=== PATIENT | female | born 1950 | race Caucasian/White ===

== ENCOUNTER 2017-03-21 06:32 | Emergency (ER) | payer MEDICARE, BC ==
[2017-03-21] MEDS ORDERED: NS 0.9% 1000 ML* 1,000 ML IV SCH (07:15)
[2017-03-21] MEDS ORDERED: NS 0.9% 1000 ML* 1,000 ML IV ONE (07:49)
[2017-03-21 08:38] LABS: ALT 5 U/L (7-52); AST 8 U/L (13-39); Albumin 2.7 g/dL (3.2-5.2); Alkaline Phosphatase 80 U/L (34-104); Anion Gap 5 mmol/L (2-11); BUN/Creatinine Ratio 18.3 (8-20); Blood Urea Nitrogen 11 mg/dL (6-24); C Reactive Protein 164.14 mg/L (< 5.00); CO2 Carbon Dioxide 30 mmol/L (22-32); Calcium 8.5 mg/dL (8.6-10.3); Chloride 99 mmol/L (101-111); Creatine Kinase 11 U/L (10-223); EGFR African American 128.6 (>60); Globulin 2.8 g/dL (2-4); Glucose 97 mg/dL (70-100); Lipase < 10 U/L (11.0-82.0); Potassium 3.4 mmol/L (3.5-5.0); Sodium 134 mmol/L (133-145); Total Protein 5.5 g/dL (6.4-8.9)
[2017-03-21 08:42] LABS: Hematocrit 21 % (35-47); Hemoglobin 6.8 g/dl (12.0-16.0); Mean Corpuscular HGB Conc 33 g/dl (31-36); Mean Corpuscular Hemoglobin 27 pg (27-31); Mean Corpuscular Volume 80 fL (80-97); Mean Platelet Volume 7 um3 (7.4-10.4); Red Blood Count 2.55 10^6/ul (4.0-5.4); Red Cell Distribution Width 19 % (10.5-15)
[2017-03-21 08:46] LABS: Digoxin 0.8 ng/ml (0.8-2.0)
[2017-03-21 08:49] LABS: Comments Flag Yes
[2017-03-21 08:50] LABS: White Blood Count 2.3 10^3/ul (3.5-10.8)
[2017-03-21] MEDS ORDERED: Iohexol 300* (CONTRAST) 10 ML SDV IV ONE (09:33)
--- NOTE | 2017-03-21 11:22 | RAD ---
CLINICAL HISTORY: Pain, vomiting COMPARISON: January 21, 2017 TECHNIQUE: Multiple contiguous axial CT scans were obtained of the abdomen and pelvis after the administration of intravenous contrast. Coronal and sagittal multiplanar reformations are submitted for review. Oral contrast was administered. Delayed images were obtained through the abdomen and pelvis. FINDINGS: LUNG BASES: There is a small right pleural effusion LIVER: There are multiple subcapsular loculated fluid collections. These have progressed from the previous examination. BILE DUCTS: There is no intrahepatic or extrahepatic biliary dilatation. GALLBLADDER: The gallbladder is not well visualized PANCREAS: The pancreas is normal, without mass or ductal dilatation. SPLEEN: Normal in size and appearance. UPPER GI TRACT: Evaluation of the gastrointestinal tract is limited by incomplete gastric distention. The upper GI tract is unremarkable. SMALL BOWEL AND MESENTERY: The small bowel is normal in contour, course, and caliber. There is no obstruction or dilatation. There is omental caking and thickening of the mesentery. COLON: A colostomy is noted. There is diverticulosis of the distal colon. There has been interval development of soft tissue nodularity extending from peritoneal soft tissue densities along the ostomy site. ADRENALS: Normal bilaterally. KIDNEYS: The kidneys are normal in shape, size, contour, and axis. There is no hydronephrosis or nephrolithiasis. BLADDER: The bladder is incompletely distended and is not well evaluated PELVIC ORGANS: The pelvic organs are not visualized. AORTA: The aorta is normal. IVC: Unremarkable LYMPH NODES: There is no lymphadenopathy by size criteria. ABDOMINAL WALL: A colostomy is noted. As noted above, there is extension of soft tissue density along the ostomy site. BONES AND SOFT TISSUES: There is a sclerotic focus within the L5 vertebral body. This is stable from the previous examination. Mild degenerative changes are noted. OTHER: There are extensive loculated fluid collections within the abdomen suggestive of loculated ascites. There is extensive thickening of the mesentery and omentum as described above. There is diffuse peritoneal soft tissue nodularity, with extension through the ostomy site IMPRESSION: THERE IS EXTENSIVE PERITONEAL METASTATIC DISEASE, WITH SIGNIFICANT PROGRESSION COMPARED TO JANUARY 21, 2017, WITH PROGRESSION OF OMENTAL CAKING AND MESENTERIC CARCINOMATOSIS, AND NODULAR PERITONEAL IMPLANTATION, WITH EXTENSION OF SOFT TISSUE DENSITY THROUGH THE OSTOMY SITE. THERE HAS BEEN PROGRESSION OF MULTILOCULATED ASCITES AND MULTIPLE SUBCAPSULAR HEPATIC FLUID COLLECTIONS
[2017-03-21 11:58] LABS: Urine Bilirubin Negative (Negative); Urine Glucose Negative (Negative); Urine Nitrite Negative (Negative)
--- NOTE | 2017-03-21 12:05 | ED ---
Erik Woodard Benjamin, scribed for Quique Ashley MD on 03/21/17 at 0928 . Abdominal Pain/Female - HPI Summary HPI Summary: 66yo female with recurring endometrial CA comes to ED c/o nausea and vomiting for the past 3 days. Pt had tumor removal surgery at [facility] on November, and has been on chemo Tx since, with tx on January and March 04. After the chemo on 03/04 , pt started having fluid buildup in her abdomen, which she had paracentesis for. Pt reports fluid still present, and pt feeling nauseous despite taking nausea meds. Pt reports vomiting up green fluid multiple times since last week. Pt spoke to Dr. Rangel, and Dr. Rangel sent her here, wanting CT scan. Pt has bloated stomach. PMHx includes recurring endometrial cancer, htn, afib, and heart murmur - History of Current Complaint Chief Complaint: EDAbdPain Stated Complaint: STOMACH PAIN Time Seen by Provider: 03/21/17 07:34 Hx Obtained From: Patient Onset/Duration: Gradual Onset, Still Present Timing: Constant Severity Initially: Mild Severity Currently: Mild Pain Intensity: 4 Pain Scale Used: 0-10 Numeric Location: Diffuse Radiates: No Aggravating Factor(s): Nothing Alleviating Factor(s): Nothing Associated Signs and Symptoms: Positive: Nausea, Vomiting Allergies/Adverse Reactions: Allergies Allergy/AdvReac Type Severity Reaction Status Date / Time Amoxicillin Allergy Unknown Verified 03/21/17 07:12 Reaction Details CI Pigment Blue 63 Allergy Unknown Verified 03/21/17 07:12 [From Pradaxa] Reaction Details Dabigatran [From Pradaxa] Allergy Unknown Verified 03/21/17 07:12 Reaction Details Rivaroxaban [From Xarelto] Allergy Unknown Verified 03/21/17 07:12 Reaction Details Yellow Dye [From Pradaxa] Allergy Unknown Verified 03/21/17 07:12 Reaction Details PMH/Surg Hx/FS Hx/Imm Hx Endocrine/Hematology History: Denies: Hx Diabetes Cardiovascular History: Reports: Hx Atrial Fibrillation Denies: Hx Hypertension History: Denies: Hx Renal Disease - Cancer History Cancer Type, Location and Year: endometrial CA - Surgical History Surgery Procedure, Year, and Place: [facility], LAPAROSCOPIC SX, MULTIPLE SX FOR RETROPERITONEAL TUMOR REMOVALS Infectious Disease History: No Infectious Disease History: Denies: Traveled Outside the [place] in Last 30 Days - Family History Known Family History: Positive: Cardiac Disease - Social History Occupation: Retired Lives: With Family Alcohol Use: None Substance Use Type: Reports: None Smoking Status (MU): Never Smoked Tobacco Review of Systems Constitutional: Negative Eyes: Negative ENT: Negative Cardiovascular: Negative Respiratory: Negative Positive: Abdominal Pain, Vomiting, Nausea Genitourinary: Negative Musculoskeletal: Negative Skin: Negative Neurological: Negative Psychological: Normal All Other Systems Reviewed And Are Negative: Yes Physical Exam Triage Information Reviewed: Yes Vital Signs On Initial Exam: Initial Vitals Temp Pulse Resp BP Pulse Ox 97.6 F 81 18 115/55 98 03/21/17 06:34 03/21/17 06:34 03/21/17 06:34 03/21/17 06:34 03/21/17 06:34 Vital Signs Reviewed: Yes Appearance: Positive: No Pain Distress, Ill-Appearing, Thin Skin: Positive: Warm, Skin Color Reflects Adequate Perfusion, Dry Head/Face: Positive: Normal Head/Face Inspection Eyes: Positive: Normal ENT: Positive: Normal ENT inspection, Other - dry oral mucosa Neck: Positive: Supple, Nontender Respiratory/Lung Sounds: Positive: Clear to Auscultation, Breath Sounds Present Cardiovascular: Positive: RRR Abdomen Description: Positive: Other: - diffusely firm and bloated abdomen; Colostomy bag grady. Bowel Sounds: Positive: Hypoactive Musculoskeletal: Positive: Strength/ROM Intact, Other - trace pedal edema Neurological: Positive: Sensory/Motor Intact, Alert, Oriented to Person Place, Time, CN Intact II-III Psychiatric: Positive: Affect/Mood Appropriate - [place] Coma Scale Coma Scale Total: 15 Diagnostics - Vital Signs Vital Signs Temp Pulse Resp BP Pulse Ox 03/21/17 08:00 73 102/50 98 03/21/17 07:30 74 108/48 99 03/21/17 07:10 74 97 03/21/17 07:07 101/57 03/21/17 06:46 97.6 F 81 18 115/55 98 03/21/17 06:34 97.6 F 81 18 115/55 98 - Laboratory Lab Results: Lab Results 03/21/17 03/21/17 03/21/17 Range/Units 08:00 08:00 08:00 INR (Anticoag Therapy) 1.03 (0.89-1.11) APTT 29.2 (26.0-36.3) seconds Sodium 134 (133-145) mmol/L Potassium 3.4 L (3.5-5.0) mmol/L Chloride 99 L (101-111) mmol/L Carbon Dioxide 30 (22-32) mmol/L Anion Gap 5 (2-11) mmol/L BUN 11 (6-24) mg/dL Creatinine 0.60 (0.51-0.95) mg/dL Est GFR ( Amer) 128.6 (>60) Est GFR (Non-Af Amer) 100.0 (>60) BUN/Creatinine Ratio 18.3 (8-20) Glucose 97 (70-100) mg/dL Lactic Acid 0.8 (0.5-2.0) mmol/L Calcium 8.5 L (8.6-10.3) mg/dL Total Bilirubin 0.40 (0.2-1.0) mg/dL AST 8 L (13-39) U/L ALT 5 L (7-52) U/L Alkaline Phosphatase 80 (34-104) U/L Total Creatine Kinase 11 (10-223) U/L Troponin I 0.00 (<0.04) ng/mL C-Reactive Protein 164.14 H (< 5.00) mg/L Total Protein 5.5 L (6.4-8.9) g/dL Albumin 2.7 L (3.2-5.2) g/dL Globulin 2.8 (2-4) g/dL Albumin/Globulin Ratio 1.0 (1-3) Lipase < 10 L (11.0-82.0) U/L Digoxin 0.8 (0.8-2.0) ng/ml Result Diagrams: 03/21/17 08:00 03/21/17 08:00 Lab Statement: Any lab studies that have been ordered have been reviewed, and results considered in the medical decision making process. - CT CT abd/Pelv W CT Interpretation: Positive (See Comments) - IMPRESSION: THERE IS EXTENSIVE PERITONEAL METASTATIC DISEASE, WITH SIGNIFICANT PROGRESSION COMPARED TO December, WITH PROGRESSION OF OMENTAL CAKING AND MESENTERIC CARCINOMATOSIS, AND NODULAR PERITONEAL IMPLANTATION, WITH EXTENSION OF SOFT TISSUE DENSITY THROUGH THE OSTOMY SITE. THERE HAS BEEN PROGRESSION OF MULTILOCULATED ASCITES AND MULTIPLE SUBCAPSULAR HEPATIC FLUID COLLECTIONS CT Interpretation Completed By: Radiologist Abdominal Pain Fem Course/Dx - Course Course Of Treatment: Discussed with Dr. Rangel at 1007; 1109. NO CRITICAL CARE TIME. DR RANGEL SAW PATIENT IN ED. INTERVENTIONAL RADIOLOGY WILL DRAIN ASCITES WITH US GUIDED PARACENTESIS. DISCHARGE HOME STABLE. - Diagnoses Provider Diagnoses: Ascites, Abdominal pain, Anemia Discharge - Discharge Plan Condition: Stable Disposition: HOME Patient Education Materials: Ascites (ED), Abdominal Pain (ED), Anemia (ED) Referrals: Andrea Rangel MD [Medical Doctor] - Butch CHILDRESS,Miguel Rodriges [Primary Care Provider] - Additional Instructions: FOLLOW UP WITH YOUR DOCTOR. RETURN TO THE EMERGENCY DEPARTMENT FOR ANY WORSENING OF YOUR CONDITION OR QUESTIONS OR CONCERNS. The documentation as recorded by the Erik luna Benjamin accurately reflects the service I personally performed and the decisions made by me, Quique Ashley MD.
[2017-03-21 12:30] VITALS: BP 114/49
[2017-03-21] MEDS ORDERED: fentaNYL* 50 MCG/ML 2 ML VIAL (100 MCG VIAL) ONE (12:44)
[2017-03-21] MEDS ORDERED: Ondansetron INJ* 2 MG/ML VIAL ONE (12:58)
--- NOTE | 2017-03-21 14:25 | RAD ---
CPT II Codes: 6100F ULTRASOUND-GUIDED PARACENTESIS. INDICATION: Malignant, loculated ascites COMPARISON: CT abdomen and pelvis March 21, 2017 IMAGING FINDINGS AND PROCEDURE NOTE: The benefits of the and risks of procedure explained to the patient. The patient consented of the exam. The patient was brought to the ultrasound suite and multiple images of the peritoneal fluid were obtained. Corresponding to the same day CT imaging, there are multiple loculated ascites collections in the peritoneal cavity. The largest is in the left upper quadrant. Immediately inferior to this largest left upper quadrant collection is a small to moderate collection below. There appears to be a thin septation dividing this upper and lower fluid collections. A time out was performed before beginning the procedure. The patient was prepped and draped in the usual sterile fashion. The patient?s abdominal wall at the site was anesthetized with 1% lidocaine. A small skin deneen was made to admit the paracentesis needle and catheter overlying the slightly more inferior peritoneal ascites collection. Under sonographic control, the needle and catheter were advanced into the lower collection, the catheter was then directed in the cephalad direction crossing the septation with the tip terminating in the larger left upper quadrant peritoneal ascites cavity. Cine sonographic imaging was recorded. The catheter was then slowly retracted incrementally with the goal of draining both loculated fluid collections above and below the septation. Approximately 1060 mL of dark maroon serosanguineous fluid was removed. The patient tolerated procedure well without incident. IMPRESSION: UNCOMPLICATED ULTRASOUND-GUIDED PARACENTESIS DESCRIBED ABOVE.
== END 2017-03-21 15:20 | disposition home or self-care (01) ==
LOC: ED 06:32
DX: R18.8 Other ascites (principal); R10.9 Unspecified abdominal pain; D64.9 Anemia, unspecified; R11.2 Nausea with vomiting, unspecified; C55 Malignant neoplasm of uterus, part unspecified
CPT/HCPCS: 36415; 36430; 49083; 74177; 80053; 80162; 81003; 82550; 83605; 83690; 84484; 85025; 85610; 85730; 86140; 86803; 96374; 99283; 99284; J1642; J2405; J3010; P9040; Q9967

== ENCOUNTER 2017-03-29 08:22 | Emergency (ER) | payer MEDICARE, BC ==
[2017-03-29] MEDS ORDERED: Ketorolac INJ* 30 MG/ML 1 ML VIAL IV ONE (08:48)
[2017-03-29] MEDS ORDERED: Ketorolac INJ* 30 MG/ML 1 ML VIAL ONE (08:50)
[2017-03-29 09:14] LABS: Hematocrit 26 % (35-47); Hemoglobin 8.4 g/dl (12.0-16.0); Mean Corpuscular HGB Conc 33 g/dl (31-36); Mean Corpuscular Hemoglobin 27 pg (27-31); Mean Corpuscular Volume 81 fL (80-97); Mean Platelet Volume 6 um3 (7.4-10.4); Red Blood Count 3.14 10^6/ul (4.0-5.4); Red Cell Distribution Width 18 % (10.5-15); White Blood Count 3.9 10^3/ul (3.5-10.8)
[2017-03-29 09:29] LABS: Albumin 2.9 g/dL (3.2-5.2); BUN/Creatinine Ratio 17.5 (8-20); Calcium 8.4 mg/dL (8.6-10.3); EGFR African American 121.6 (>60); EGFR Non-African American 94.5 (>60); Globulin 3.1 g/dL (2-4); Potassium 3.5 mmol/L (3.5-5.0); Total Bilirubin 0.4 mg/dL (0.2-1.0)
[2017-03-29] MEDS ORDERED: Ondansetron INJ* 2 MG/ML VIAL IV ONE (10:06)
[2017-03-29] MEDS ORDERED: HYDROmorphone* 1 MG/ML 1 ML SYR IV ONE (10:06)
[2017-03-29] MEDS ORDERED: NS 0.9% 1000 ML* 1,000 ML IV SCH (10:15)
[2017-03-29] MEDS ORDERED: fentaNYL* 50 MCG/ML 2 ML VIAL (100 MCG VIAL) ONE (12:21)
--- NOTE | 2017-03-29 14:05 | RAD ---
Indication: Abdominal distention. Real-time sonography of the abdomen was performed for evaluation of fluid. There is a loculated collection in the left lower quadrant and left upper quadrant. Using usual aseptic technique and using lidocaine as a local anesthetic a 5-Thai catheter was placed within the left lower quadrant collection. Approximately 400 mL of the fluid was aspirated. IMPRESSION: Successful aspiration of 400 mL of bloody fluid from the left lower quadrant.
[2017-03-29 15:35] VITALS: BP 117/51
--- NOTE | 2017-03-29 17:49 | ED ---
Argentina Woodard Rebecca, scribed for Quique Ashley MD on 03/29/17 at 0840 . Abdominal Pain/Female - HPI Summary HPI Summary: Pt is a 66 y/o F who presents to ED c/o acute on chronic abd pain. Pain worsened yesterday afternoon. Pain is in the RLQ and RUQ with radiation to the R flank and is currently moderate, ranked 6/10. Sx aggravated and alleviated by nothing. Additionally c/o abdominal fluid retention and nausea. Is currently undergoing Tx for endometrial CA for which she started a new regime on Tuesday ( 4 days ago) and has undergone one treatment with the new plan. Undergoes paracentesis to treat ascites every 2-3 days to drain abdominal fluid, the last drainage was [address] Ramirez. - History of Current Complaint Chief Complaint: EDAbdPain Stated Complaint: ABD FLUID Time Seen by Provider: 03/29/17 08:29 Hx Obtained From: Patient Onset/Duration: Still Present Severity Currently: Moderate Pain Intensity: 6 Pain Scale Used: 0-10 Numeric Location: Discrete At: RUQ, Discrete At: RLQ Radiates: Yes Radiates to: Flank - Right Aggravating Factor(s): Nothing Alleviating Factor(s): Nothing Associated Signs and Symptoms: Positive: Nausea, Other: - Abdominal fluid retention Allergies/Adverse Reactions: Allergies Allergy/AdvReac Type Severity Reaction Status Date / Time Amoxicillin Allergy Unknown Verified 03/25/17 09:48 Reaction Details CI Pigment Blue 63 Allergy Unknown Verified 03/25/17 09:48 [From Pradaxa] Reaction Details Dabigatran [From Pradaxa] Allergy Unknown Verified 03/25/17 09:48 Reaction Details Rivaroxaban [From Xarelto] Allergy Unknown Verified 03/25/17 09:48 Reaction Details Yellow Dye [From Pradaxa] Allergy Unknown Verified 03/25/17 09:48 Reaction Details PMH/Surg Hx/FS Hx/Imm Hx Endocrine/Hematology History: Denies: Hx Diabetes Cardiovascular History: Reports: Hx Atrial Fibrillation Denies: Hx Hypertension History: Denies: Hx Renal Disease - Cancer History Cancer Type, Location and Year: endometrial CA - Surgical History Surgery Procedure, Year, and Place: [facility], LAPAROSCOPIC SX, MULTIPLE SX FOR RETROPERITONEAL TUMOR REMOVALS Infectious Disease History: No Infectious Disease History: Denies: Traveled Outside the [place] in Last 30 Days - Family History Known Family History: Positive: Cardiac Disease - Social History Alcohol Use: None Substance Use Type: Reports: None Smoking Status (MU): Never Smoked Tobacco Review of Systems Positive: Other - Abdominal fluid retention Positive: Abdominal Pain, Nausea All Other Systems Reviewed And Are Negative: Yes Physical Exam - Summary Physical Exam Summary: General: thing, mild to moderate pain distress Skin: warm, skin color reflects adequate perfusion, dry Head: normal Eyes: EOMI, HOMERO ENT: normal Neck: supple, nontender Respiratory: CTA, breath sounds present Cardiovascular: RRR Abdomen: distended, firm, diffusely tender Bowel: hypoactive Musculoskeletal: normal, strength/ROM intact Neuro: normal, sensory/motor intact, A&O x3 Psych: affect/mood appropriate Triage Information Reviewed: Yes Vital Signs On Initial Exam: Initial Vitals Temp Pulse Resp BP Pulse Ox 98.5 F 89 16 111/60 100 03/29/17 08:26 03/29/17 08:26 03/29/17 08:26 03/29/17 08:26 03/29/17 08:26 Vital Signs Reviewed: Yes Diagnostics - Vital Signs Vital Signs Temp Pulse Resp BP Pulse Ox 03/29/17 08:26 98.5 F 89 16 111/60 100 - Laboratory Lab Results: Lab Results 03/29/17 03/29/17 03/29/17 Range/Units 09:05 09:05 09:05 WBC 3.9 (3.5-10.8) 10^3/ul RBC 3.14 L (4.0-5.4) 10^6/ul Hgb 8.4 L (12.0-16.0) g/dl Hct 26 L (35-47) % MCV 81 (80-97) fL MCH 27 (27-31) pg MCHC 33 (31-36) g/dl RDW 18 H (10.5-15) % Plt Count 633 H D (150-450) 10^3/ul MPV 6 L (7.4-10.4) um3 Neut % (Auto) 78.9 (38-83) % Lymph % (Auto) 8.5 L (25-47) % [place] % (Auto) 11.3 H (1-9) % Eos % (Auto) 0.7 (0-6) % Baso % (Auto) 0.6 (0-2) % Absolute Neuts (auto) 3.1 (1.5-7.7) 10^3/ul Absolute Lymphs (auto) 0.3 L (1.0-4.8) 10^3/ul Absolute Monos (auto) 0.4 (0-0.8) 10^3/ul Absolute Eos (auto) 0 (0-0.6) 10^3/ul Absolute Basos (auto) 0 (0-0.2) 10^3/ul Absolute Nucleated RBC 0 10^3/ul Nucleated RBC % 0 INR (Anticoag Therapy) 0.97 (0.89-1.11) APTT 309.8 H* (26.0-36.3) seconds Sodium 131 L (133-145) mmol/L Potassium 3.5 (3.5-5.0) mmol/L Chloride 96 L (101-111) mmol/L Carbon Dioxide 30 (22-32) mmol/L Anion Gap 5 (2-11) mmol/L BUN 11 (6-24) mg/dL Creatinine 0.63 (0.51-0.95) mg/dL Est GFR ( Amer) 121.6 (>60) Est GFR (Non-Af Amer) 94.5 (>60) BUN/Creatinine Ratio 17.5 (8-20) Glucose 96 (70-100) mg/dL Calcium 8.4 L (8.6-10.3) mg/dL Total Bilirubin 0.40 (0.2-1.0) mg/dL AST 12 L (13-39) U/L ALT 6 L (7-52) U/L Alkaline Phosphatase 118 H (34-104) U/L Total Protein 6.0 L (6.4-8.9) g/dL Albumin 2.9 L (3.2-5.2) g/dL Globulin 3.1 (2-4) g/dL Albumin/Globulin Ratio 0.9 L (1-3) 03/29/17 Range/Units 10:29 WBC (3.5-10.8) 10^3/ul RBC (4.0-5.4) 10^6/ul Hgb (12.0-16.0) g/dl Hct (35-47) % MCV (80-97) fL MCH (27-31) pg MCHC (31-36) g/dl RDW (10.5-15) % Plt Count (150-450) 10^3/ul MPV (7.4-10.4) um3 Neut % (Auto) (38-83) % Lymph % (Auto) (25-47) % [place] % (Auto) (1-9) % Eos % (Auto) (0-6) % Baso % (Auto) (0-2) % Absolute Neuts (auto) (1.5-7.7) 10^3/ul Absolute Lymphs (auto) (1.0-4.8) 10^3/ul Absolute Monos (auto) (0-0.8) 10^3/ul Absolute Eos (auto) (0-0.6) 10^3/ul Absolute Basos (auto) (0-0.2) 10^3/ul Absolute Nucleated RBC 10^3/ul Nucleated RBC % INR (Anticoag Therapy) 0.94 (0.89-1.11) APTT 32.2 (26.0-36.3) seconds Sodium (133-145) mmol/L Potassium (3.5-5.0) mmol/L Chloride (101-111) mmol/L Carbon Dioxide (22-32) mmol/L Anion Gap (2-11) mmol/L BUN (6-24) mg/dL Creatinine (0.51-0.95) mg/dL Est GFR ( Amer) (>60) Est GFR (Non-Af Amer) (>60) BUN/Creatinine Ratio (8-20) Glucose (70-100) mg/dL Calcium (8.6-10.3) mg/dL Total Bilirubin (0.2-1.0) mg/dL AST (13-39) U/L ALT (7-52) U/L Alkaline Phosphatase (34-104) U/L Total Protein (6.4-8.9) g/dL Albumin (3.2-5.2) g/dL Globulin (2-4) g/dL Albumin/Globulin Ratio (1-3) Result Diagrams: 03/29/17 09:05 03/29/17 09:05 Lab Statement: Any lab studies that have been ordered have been reviewed, and results considered in the medical decision making process. - Ultrasound No standard instances Ultrasound Interpretation: Positive (See Comments) - Paracentesis US: Successful aspiration of 400 mL of bloody fluid from the left lower quadrant. Ultrasound Interpretation Completed By: Radiologist Re-Evaluation - Re-Evaluation First Eval Re-Evaluation Time: 09:58 Change: Unchanged Comment: Pt reports she continues to be in a lot of pain. Discussed consult with Dr. Rangel. Abdominal Pain Fem Course/Dx - Course Course Of Treatment: NO CRITICAL CARE TIME. DISCUSSED WITH DR RANGEL. INTERVENTIONAL RADIOLOGY PERFORMED US GUIDED PARACENTESIS, REMOVING 400CC WITH DECREASED ABD PAIN. DISCHARGE HOME STABLE. - Diagnoses Provider Diagnoses: Ascites, Abdominal pain - Provider Notifications Discussed Care Of Patient With: Andrea Rangel Time Discussed With Above Provider: 08:41 Instructed by Provider To: Other - Because her ascites is loculated, when it gets drianed, it must be drianed with US guidance so it s dependent upon whether radiology can do it. He is also happy to admit her for pain control if necessary. Discussed care of pt with Dr. Rangel again at 0935 who advised that dependent upon the pt's level of pain, the condition and need for US guided pericentesis is emergent. If the pt cannot handle pain until tomorrow, he advised that the procedure should be completed today. Discharge - Discharge Plan Condition: Stable Disposition: HOME Patient Education Materials: Ascites (ED), Abdominal Pain (ED) Referrals: Butch CHILDRESS,Miguel Rodriges [Primary Care Provider] - Additional Instructions: FOLLOW UP WITH YOUR DOCTOR. RETURN TO THE EMERGENCY DEPARTMENT FOR ANY WORSENING OF YOUR CONDITION OR QUESTIONS OR CONCERNS. The documentation as recorded by the Argentina luna Rebecca accurately reflects the service I personally performed and the decisions made by me, Quique Ashley MD.
== END 2017-03-29 15:50 | disposition home or self-care (01) ==
LOC: ED 08:22
DX: R18.8 Other ascites (principal); R10.84 Generalized abdominal pain; R11.0 Nausea
CPT/HCPCS: 36415; 49083; 80053; 85025; 85610; 85730; 96374; 96375; 99283; J1170; J1642; J1885; J2405; J3010

== ENCOUNTER 2017-04-11 14:40 | Inpatient (IN) | payer MEDICARE, BC ==
[2017-04-11] MEDS ORDERED: Ondansetron TAB* 4 MG PO PRN (15:03)
[2017-04-11 17:24] LABS: Hematocrit 22 % (35-47); Mean Corpuscular HGB Conc 32 g/dl (31-36); Mean Corpuscular Hemoglobin 25 pg (27-31); Mean Corpuscular Volume 78 fL (80-97); Mean Platelet Volume 7 um3 (7.4-10.4); Red Blood Count 2.79 10^6/ul (4.0-5.4); Red Cell Distribution Width 20 % (10.5-15); White Blood Count 4.9 10^3/ul (3.5-10.8)
[2017-04-11] MEDS: Scopolamine 1.5 mg* PATCH TRANSDERM SCH (17:33)
[2017-04-11] MEDS: Ciprofloxacin 400MG IVPREMIX(* 400 MG/200 ML BAG IVPB SCH (17:33)
[2017-04-11] MEDS: Digoxin TAB* 0.125 MG PO SCH (18:05)
[2017-04-11] MEDS: Acetaminophen TAB* 325 MG PO PRN (19:39)
--- NOTE | 2017-04-11 20:57 | RAD ---
CLINICAL HISTORY: Fever, abdominal pain COMPARISON: March 21, 2017 TECHNIQUE: Multiple contiguous axial CT scans were obtained of the abdomen and pelvis, without intravenous contrast enhancement. Coronal and sagittal multiplanar reformations are submitted for review. Oral contrast was not administered. FINDINGS: The study is limited by the lack of intravenous contrast. This limits evaluation of the solid organs and vasculature. LUNG BASES: There is a small right pleural effusion. LIVER: There are multiple subcapsular hepatic parenchymal lesions. BILE DUCTS: There is no intrahepatic or extrahepatic biliary dilatation. GALLBLADDER: Gallstones are noted. The gallbladder is collapsed. PANCREAS: The pancreas is normal, without mass or ductal dilatation. SPLEEN: Normal in size and appearance. UPPER GI TRACT: Evaluation of the gastrointestinal tract is limited by incomplete gastric distention. The upper GI tract is unremarkable. SMALL BOWEL AND MESENTERY: The small bowel is normal in contour, course, and caliber. There is no obstruction or dilatation. COLON: There are multiple diverticula of the sigmoid colon. There is no pericolonic inflammatory change. ADRENALS: Normal bilaterally. KIDNEYS: The kidneys are normal in shape, size, contour, and axis. There is no hydronephrosis or nephrolithiasis. BLADDER: The bladder is smooth in contour. PELVIC ORGANS: The pelvic organs are not visualized. AORTA: The aorta is normal. IVC: Unremarkable LYMPH NODES: There is no lymphadenopathy by size criteria. ABDOMINAL WALL: A colostomy is noted. There is soft tissue density at the level of the stoma BONES AND SOFT TISSUES: Degenerative changes are noted. There is stable sclerotic focus of L5 OTHER: There is large amount of loculated ascites with multiple peritoneal soft tissue masses.] Comparison is limited due to the lack of intravenous contrast on Doppler, the appearance is similar to the March 21, 2017 examination. IMPRESSION: 1. LIMITED STUDY. 2. AGAIN NOTED IS EXTENSIVE PERITONEAL METASTATIC DISEASE WITH MULTILOCULATED ASCITES AND SUBCAPSULAR HEPATIC LESIONS. WITHIN THE LIMITATIONS OF THE STUDY, THE APPEARANCE IS SIMILAR TO THE MARCH 21, 2017 EXAMINATION
[2017-04-11] MEDS: Docusate CAP* 100 MG PO SCH (21:14)
[2017-04-11] MEDS: metroNIDAZOLE IV 500 MG/100ML* 500 MG/100 ML BAG IVPB SCH (21:31)
[2017-04-12] MEDS: Ondansetron INJ* 2 MG/ML VIAL IV PRN ×4 (00:52→20:57)
[2017-04-12] MEDS ORDERED: Acetaminophen TAB* 325 MG PO ONE (01:15)
[2017-04-12] MEDS: NS 0.9% 1000 ML* 1,000 ML IV SCH ×2 (03:02→20:57)
[2017-04-12] MEDS: Ciprofloxacin 400MG IVPREMIX(* 400 MG/200 ML BAG IVPB SCH ×2 (04:22→15:30)
[2017-04-12 06:14] LABS: Albumin 2.4 g/dL (3.2-5.2); BUN/Creatinine Ratio 24.7 (8-20); Calcium 8.1 mg/dL (8.6-10.3); EGFR African American 81.6 (>60); EGFR Non-African American 63.5 (>60); Potassium 3.6 mmol/L (3.5-5.0); Total Bilirubin 0.4 mg/dL (0.2-1.0); Total Protein 5.4 g/dL (6.4-8.9)
[2017-04-12] MEDS: Aspirin EC Low Dose* 81 MG TAB.EC PO SCH (08:24)
[2017-04-12] MEDS: metroNIDAZOLE IV 500 MG/100ML* 500 MG/100 ML BAG IVPB SCH ×2 (08:24→20:56)
[2017-04-12] MEDS: Docusate CAP* 100 MG PO SCH ×2 (08:24→20:57)
[2017-04-12] MEDS ORDERED: PROCHLORPERAZINE INJ 5 MG/ML 2 ML VIAL IV ONE (09:00)
[2017-04-12] MEDS: Metoprolol Succinate XL TAB* 25 MG PO SCH (09:48)
[2017-04-12 11:36] LABS: Hematocrit 22 % (35-47); Hemoglobin 7.1 g/dl (12.0-16.0); Mean Corpuscular HGB Conc 32 g/dl (31-36); Mean Corpuscular Hemoglobin 25 pg (27-31); Mean Corpuscular Volume 78 fL (80-97); Mean Platelet Volume 6 um3 (7.4-10.4); Red Blood Count 2.83 10^6/ul (4.0-5.4); Red Cell Distribution Width 20 % (10.5-15); White Blood Count 4.7 10^3/ul (3.5-10.8)
[2017-04-12] MEDS: Acetaminophen TAB* 325 MG PO PRN ×2 (12:48→18:13)
[2017-04-12] MEDS ORDERED: Digoxin TAB* 0.25 MG ONE (12:53)
[2017-04-12 13:06] LABS: Body Fluid Appearance Bloody
[2017-04-12] MEDS: Digoxin TAB* 0.25 MG PO SCH (14:07)
[2017-04-12 14:17] LABS: Body Fluid WBC 62073 /mcL
--- NOTE | 2017-04-12 14:23 | RAD ---
Indication: Sepsis. Informed consent was obtained the patient. Loculated fluid collection in the left lower quadrant was localized. Using usual aseptic technique and lidocaine as a local anesthetic a 5-Telugu catheter was placed within the fluid. 60 mL of bloody fluid was aspirated. A vacuum bottle was attached and 450 mL of dark old bloody fluid was aspirated. The specimen was sent for cultures and sensitivities. IMPRESSION: Successful ultrasound-guided localization and aspiration of approximately 510 mL of dark bloody appearing fluid.
[2017-04-12] MEDS: PROCHLORPERAZINE INJ 5 MG/ML 2 ML VIAL IV PRN (15:26)
[2017-04-12 15:42] LABS: Body Fluid Total Cells Counted 100
[2017-04-13] MEDS: PROCHLORPERAZINE INJ 5 MG/ML 2 ML VIAL IV PRN ×2 (01:10→18:31)
[2017-04-13] MEDS: Ondansetron INJ* 2 MG/ML VIAL IV PRN ×3 (02:24→21:12)
[2017-04-13] MEDS: Ciprofloxacin 400MG IVPREMIX(* 400 MG/200 ML BAG IVPB SCH (03:35)
[2017-04-13 05:47] LABS: BUN/Creatinine Ratio 25.4 (8-20); EGFR African American 121.6 (>60); EGFR Non-African American 94.5 (>60); Potassium 3.8 mmol/L (3.5-5.0)
[2017-04-13 08:34] LABS: Hematocrit 29 % (35-47); Hemoglobin 9.4 g/dl (12.0-16.0); Mean Corpuscular HGB Conc 33 g/dl (31-36); Mean Corpuscular Hemoglobin 26 pg (27-31); Mean Corpuscular Volume 80 fL (80-97); Mean Platelet Volume 6 um3 (7.4-10.4); Red Blood Count 3.62 10^6/ul (4.0-5.4); Red Cell Distribution Width 19 % (10.5-15); White Blood Count 6.3 10^3/ul (3.5-10.8)
[2017-04-13] MEDS: Docusate CAP* 100 MG PO SCH ×2 (09:20→21:12)
[2017-04-13] MEDS: metroNIDAZOLE IV 500 MG/100ML* 500 MG/100 ML BAG IVPB SCH ×2 (09:20→21:12)
[2017-04-13] MEDS: Metoprolol Succinate XL TAB* 25 MG PO SCH (09:20)
[2017-04-13] MEDS: Aspirin EC Low Dose* 81 MG TAB.EC PO SCH (09:20)
[2017-04-13] MEDS: Pantoprazole IV* 40 MG IV SCH (11:33)
[2017-04-13] MEDS: cefTRIAXone VIAL(*) 1,000 MG in NS 0.9% 50 ML* 50 ML IVPB SCH (11:33)
[2017-04-13] MEDS: Enoxaparin(*) 40 MG/0.4 ML SYR SUBCUT SCH (11:34)
[2017-04-13] MEDS: Morphine INJ* 2 MG/ML 1 ML SYRINGE IV PRN ×2 (11:49→18:31)
[2017-04-13] MEDS ORDERED: Acetaminophen SUPP* 650 MG SUPP PR PRN (12:53)
[2017-04-13] MEDS: NS 0.9% 1000 ML* 1,000 ML IV SCH (14:04)
--- NOTE | 2017-04-13 14:39 | CONS ---
CONSULTATION REPORT: DATE OF CONSULT: 04/13/17 REQUESTING PROVIDER: DELILAH Benjamin CONSULTING SERVICE: Infectious Disease. REASON FOR CONSULT: Peritonitis. IMPRESSION: 1. Endometrial cancer with peritoneal carcinomatosis and loculated ascites, recent left-sided aspiration of one pocket showed 62,000 white cells most polys. The Gram stain shows gram-positive cocci in chains, gram-negative rods, gram-positive rods, most likely enteric yulia. There was no gross evidence for abscess on the CT scan, but I am concerned that given that these are starting of as a loculated collection, they may act more like an abscess than the typical spontaneous bacterial peritonitis. 2. Right of midline abdominal wall cellulitis could be due to a recent frequent paracentesis. It is adjacent to the ostomy. 3. Endometrial cancer, complicated by metastasis to the liver and peritoneum. 4. Anemia. 5. Mild transaminitis. 6. Question of ileus. RECOMMENDATIONS: 1. We will add gram-positive coverage with ceftriaxone and continue Flagyl, stop Cipro. 2. She has the AMOXICILLIN ALLERGY that caused rash and there is very low cross reactivity to ceftriaxone and we will monitor closely for adverse events however. 3. If her abdominal distention and vomiting progresses, would consider surgical consultation, although she did not have an obstruction on the CT yesterday. She feels she is getting worse and one may have developed in the interim. Alternatively, it may just be an ileus in response to associated infection. HISTORY OF PRESENT ILLNESS: This is a 66-year-old woman with metastatic endometrial cancer, admitted with abdominal distention and pain. She has been receiving chemotherapy over the last couple of months, had occasional vomiting and then 3 to 4 days ago developed worsening abdominal distention, pain, and vomiting 2 to 3 times a day. In the last day and half, she has a decreased output from her ostomy some gas, but no stool. Today, she has had couple episodes of bilious emesis without blood. She had a paracentesis yesterday, 500 mL of bloody fluid was removed. CT of the abdomen and pelvis done on the shows peritoneal metastatic disease, multiloculated ascites and subcapsular hepatic lesions similar to March 21. She has had ongoing left-sided abdominal pain that has become more diffuse. It is little bit worse when she moves around and rolls on the bed. She is not taking in much by mouth other than pills. She has had no fevers while she has been here. PAST MEDICAL HISTORY: 1. Endometrial cancer, diagnosed in 2013 treated with hysterectomy and oophorectomy and omentectomy in 2014, then treated with brachytherapy; another laparoscopic abdominal surgery January 2016 followed by chemotherapy, Gemzar and cisplatin; tumor debulking May 2016; and ostomy. Subsequent radiation and Megace treatment. Recurrence in October 2016 with metastasis to the liver and peritoneum and in December 2016 had exploratory laparotomy, lysis of adhesions, resection of lymph nodes, omentectomy and partial hepatic resection, currently on Torisel. 2. Atrial fibrillation. 3. Status post right chest port. ALLERGIES: AMOXICILLIN caused itchy rash, XARELTO caused petechiae, and PRADAXA caused bleeding. MEDICATIONS: Tylenol, aspirin, digoxin, docusate, enoxaparin, metoprolol, pantoprazole, Cipro 500 mg IV every 12 hours, Flagyl 500 mg twice daily, scopolamine patch. SOCIAL HISTORY: She lives in [place] with her . No travel. No sick contacts. FAMILY HISTORY: Mother at 79 with pancreatic cancer, also had breast cancer. Father of ALS at age 66. REVIEW OF SYSTEMS: All negative to full review of systems except as noted above. PHYSICAL EXAM: Vital Signs: Temperature is 37, heart rate 100, respiratory rate 16, blood pressure 123/53, O2 sat 97% on room air. General: She is awake, not in distress. She is cachectic. HEENT: There is no conjunctival hemorrhage. Oropharynx without lesions. Neck is supple without nuchal rigidity. Lymph Nodes: There is no cervical, inguinal, axillary, or epitrochlear lymphadenopathy. Heart is regular and tachycardic without murmurs. Lungs: Decreased breath sounds at the bases bilaterally without wheezes or rales. Abdomen is distended, firm. There are decreased bowel sounds with left-sided ostomy without air or stool adjacent to that there is a little bit of stool when looking under the seal. Right of midline and of the ostomy, there is diffuse mild erythema, warmth, and tenderness without crepitus or fluctuance. Musculoskeletal: There is no joint synovitis. LABORATORY DATA: Creatinine 0.6. White blood cell count 6, hemoglobin 9, platelets 337. Please see impressions and recommendations outlined above, which I have discussed with DELILAH Benjamin. Thank you for asking me to see Ms. Wolff in consultation. [id number]/[facility] #: [id number] ROSHAN
[2017-04-13] MEDS: Digoxin TAB* 0.125 MG PO SCH (17:11)
[2017-04-13] MEDS: Acetaminophen ADULT LIQ* 650 MG/20.3 ML UDC PO PRN (21:12)
[2017-04-14] MEDS: PROCHLORPERAZINE INJ 5 MG/ML 2 ML VIAL IV PRN (05:49)
[2017-04-14 06:30] LABS: BUN/Creatinine Ratio 23.6 (8-20); EGFR African American 142.2 (>60); EGFR Non-African American 110.6 (>60); Potassium 3.7 mmol/L (3.5-5.0)
--- NOTE | 2017-04-14 07:33 | CONSULT ---
Consult Consult: Gunjan Rangel MD oncology requested evaluation for unusual fluid leak from the abdomen. Upon arrival, Mrs Wolff was comfortable. Her umbilicus was covered with several 4x4 gauze pads saturated with serosanguinous fluid. Light pressure on the abdomen creates a 1mm diameter jet 3-5cm high consistent with ascitic leak. The source is a blood blister overlying the mckenna-umbilical old laparotomy scar. Gunjan Rangel MD apprised, will place a colostomy bag over the site to collect. Consider surgical consult in AM.
[2017-04-14] MEDS: Metoprolol Succinate XL TAB* 25 MG PO SCH (09:03)
[2017-04-14] MEDS: metroNIDAZOLE IV 500 MG/100ML* 500 MG/100 ML BAG IVPB SCH ×2 (09:03→20:59)
[2017-04-14] MEDS: Docusate CAP* 100 MG PO SCH ×2 (09:03→20:59)
[2017-04-14] MEDS: Aspirin EC Low Dose* 81 MG TAB.EC PO SCH (09:03)
--- NOTE | 2017-04-14 09:09 | RAD ---
INDICATION: Paralytic ileus. COMPARISON: Comparison is made with a prior CT of the abdomen and pelvis from April 11, 2017. TECHNIQUE: Supine and decubitus views of the abdomen were obtained. FINDINGS: The small bowel and colon appear nondistended. No free intraperitoneal air is seen. There is an ostomy in the left lower quadrant. There is a small right pleural effusion which is unchanged from the prior CT study. IMPRESSION: 1. NO EVIDENCE FOR OBSTRUCTION OR ILEUS. 2. SMALL RIGHT PLEURAL EFFUSION.
[2017-04-14] MEDS ORDERED: Bisacodyl SUPP* 10 MG SUPP PR PRN (10:00)
[2017-04-14 10:06] LABS: Hematocrit 29 % (35-47); Hemoglobin 9.1 g/dl (12.0-16.0); Mean Corpuscular HGB Conc 32 g/dl (31-36); Mean Corpuscular Hemoglobin 26 pg (27-31); Mean Corpuscular Volume 81 fL (80-97); Mean Platelet Volume 6 um3 (7.4-10.4); Red Blood Count 3.57 10^6/ul (4.0-5.4); Red Cell Distribution Width 19 % (10.5-15); White Blood Count 4.5 10^3/ul (3.5-10.8)
--- NOTE | 2017-04-14 10:46 | PN ---
Progress Note - Progress Note Date of Service: 04/14/17 SOAP: Subjective: CC: abd pain HPI: 66 year old woman with metastatic endometrial cancer admitted with abd pain , has ascites and intermittant paracentesis. Now with cellulitis arising from midline abd incision and overnight eruption of serosanguinous fluid from nodule on healed incision. Ongoing drainage into ostomy bag. Fever overnight. Minimal ostomy output. Objective: [] Vital Signs Temp 36.9 C 04/14/17 07:28 Pulse 87 04/14/17 07:28 Resp 20 04/14/17 07:58 BP 123/52 04/14/17 07:28 Pulse Ox 97 04/14/17 07:28 Intake & Output 04/13/17 04/14/17 04/14/17 18:59 06:59 18:59 Intake Total 240 1745 Output Total 0 Balance 240 1745 Intake: IV Fluids 1580 NS (0.9%) 1580 IVPB 165 NS (0.9%) 165 Oral 240 0 Output: Urine 0 Other: Estimated Void Medium Small # Bowel Movements 0 # Voids 2 1 Gen:awake, no distress HEENT:PERRL, MMM Neck: supple Heart:RRR no murmur Lungs:CTA BL Abd:decr BS, distended, diffusely tender; midline healed incision w ostomy bag fluid present; LLQ ostomy bag deflated; R abd mild edema and warmth Skin: no rash Laboratory Results - last 24 hr 04/12/17 04/12/17 04/14/17 11:25 12:21 05:42 WBC RBC Hgb Hct MCV MCH MCHC RDW Plt Count MPV Neut % (Auto) Lymph % (Auto) Izard % (Auto) Eos % (Auto) Baso % (Auto) Absolute Neuts (auto) Absolute Lymphs (auto) Absolute Monos (auto) Absolute Eos (auto) Absolute Basos (auto) Absolute Nucleated RBC Nucleated RBC % Sodium 128 L Potassium 3.7 Chloride 97 L Carbon Dioxide 25 Anion Gap 6 BUN 13 Creatinine 0.55 Est GFR ( Amer) 142.2 Est GFR (Non-Af Amer) 110.6 BUN/Creatinine Ratio 23.6 H Glucose 82 Calcium 8.0 L Fluid Cell Count Rvw By Antibody Screen Positive Antibody Identification Anti-Fya Direct Antiglob Test Negative Crossmatch See Detail 04/14/17 10:00 WBC 4.5 RBC 3.57 L Hgb 9.1 L Hct 29 L MCV 81 MCH 26 L MCHC 32 RDW 19 H Plt Count 294 MPV 6 L Neut % (Auto) 88.5 H Lymph % (Auto) 2.6 L Izard % (Auto) 8.7 Eos % (Auto) 0.1 Baso % (Auto) 0.1 Absolute Neuts (auto) 4.0 Absolute Lymphs (auto) 0.1 L Absolute Monos (auto) 0.4 Absolute Eos (auto) 0 Absolute Basos (auto) 0 Absolute Nucleated RBC 0 Nucleated RBC % 0 Sodium Potassium Chloride Carbon Dioxide Anion Gap BUN Creatinine Est GFR ( Amer) Est GFR (Non-Af Amer) BUN/Creatinine Ratio Glucose Calcium Fluid Cell Count Rvw By Antibody Screen Antibody Identification Direct Antiglob Test Crossmatch Microbiology 04/12/17 12:21 Gram Stain - Final Peritoneal Fluid Body Fluid Culture - Preliminary Klebsiella Oxytoca Assessment: 1. fever due to abd wall celllulitis and peritonitis 2. abd wall cellulitis, improving; associated with ascites leak 3. multiloculated abd ascites, complicated by polymicrobial infection likely bowel yulia 4. endometrial cancer with liver and peritoneal metastases 5. hyponatremia Plan: 1. continue ceftriaxone and flagyl. General surgery consultation. Discussed with Dr Logan 35 minutes floor time >50% face to face in counseling regarding next diagnostic steps, all questions answered.
[2017-04-14] MEDS: Pantoprazole IV* 40 MG IV SCH (11:00)
[2017-04-14] MEDS: cefTRIAXone VIAL(*) 1,000 MG in NS 0.9% 50 ML* 50 ML IVPB SCH (12:38)
[2017-04-14] MEDS: Enoxaparin(*) 40 MG/0.4 ML SYR SUBCUT SCH (13:57)
[2017-04-14] MEDS: Digoxin TAB* 0.25 MG PO SCH (14:36)
[2017-04-14] MEDS ORDERED: Polyethylene Glycol 3350* 17 GM PACKET PO PRN (15:55)
[2017-04-14] MEDS ORDERED: Alteplase* 100 MG VIAL IV ONE (16:00)
[2017-04-14] MEDS ORDERED: Iohexol 300* (CONTRAST) 10 ML SDV IV ONE (16:08)
[2017-04-14] MEDS: Scopolamine 1.5 mg* PATCH TRANSDERM SCH (16:09)
[2017-04-14] MEDS ORDERED: Alteplase (CATHFLO)* 2 MG VIAL IV ONE (17:00)
[2017-04-14] MEDS: Acetaminophen ADULT LIQ* 650 MG/20.3 ML UDC PO PRN (17:39)
--- NOTE | 2017-04-14 18:36 | RAD ---
CLINICAL HISTORY: Sepsis, question fistula COMPARISON: CT dated April 11, 2017, CT dated March 15, 2015 TECHNIQUE: Multiple contiguous axial CT scans were obtained of the abdomen and pelvis after the administration of intravenous contrast. Coronal and sagittal multiplanar reformations are submitted for review. Oral contrast was administered. FINDINGS: LUNG BASES: There are small bilateral pleural effusions LIVER: Again noted are multiple subcapsular fluid collections along the liver. The liver is mildly enlarged measuring 19.1 cm. BILE DUCTS: There is no intrahepatic or extrahepatic biliary dilatation. GALLBLADDER: The gallbladder is not well visualized but appears grossly normal. PANCREAS: The pancreas is normal, without mass or ductal dilatation. SPLEEN: Normal in size and appearance. UPPER GI TRACT: Evaluation of the gastrointestinal tract is limited by incomplete gastric distention. The upper GI tract is unremarkable. SMALL BOWEL AND MESENTERY: The small bowel is normal in contour, course, and caliber. There is no obstruction or dilatation. Again noted are multiple loculated thick walled fluid collections within the mesentery and soft tissue nodularity along the peritoneum consistent with diffuse peritoneal metastatic disease. COLON: The colon is normal in contour, course, caliber. There is no pericolonic inflammatory change. A colostomy is noted. ADRENALS: Normal bilaterally. KIDNEYS: The kidneys are normal in shape, size, contour, and axis. There is no hydronephrosis or nephrolithiasis. BLADDER: The bladder is not well visualized but is grossly normal. PELVIC ORGANS: The pelvic organs are not visualized. AORTA: The aorta is normal. IVC: Unremarkable LYMPH NODES: There is no lymphadenopathy by size criteria. ABDOMINAL WALL: There is a colostomy. Again noted is soft tissue density along the clustering consistent with extension of peritoneal soft tissue through the ostomy. There is ascites tracking along the anterior abdominal musculature and extending anteriorly to the anterior abdominal muscles which are indistinct indicating with an apparent soft tissue defect. BONES AND SOFT TISSUES: Degenerative changes are noted. There is diffuse subcutaneous edema. OTHER: As noted above, there is multiloculated ascites IMPRESSION: 1. AGAIN NOTED IS A MULTILOCULATED ASCITES WITH MULTIPLE PERITONEAL AND MESENTERIC SOFT TISSUE DENSITIES CONSISTENT WITH PERITONEAL AND MESENTERIC CARCINOMATOSIS. 2. THE ASCITES EXTENDS ANTERIOR TO THE ANTERIOR ABDOMINAL MUSCULATURE, AND APPEARS TO EXTEND TO A DEFECT OF THE SOFT TISSUE OF THE ANTERIOR ABDOMINAL WALL CONSISTENT WITH THE HISTORY OF FISTULA/SINUS TRACT COMMUNICATING WITH THE PERITONEAL CAVITY. THERE IS NO APPRECIABLE TRUNCATION WITH THE BOWEL. 3. BILATERAL PLEURAL EFFUSIONS. 4. AGAIN NOTED ARE MULTIPLE LOCULATED SUBCAPSULAR HEPATIC FLUID COLLECTIONS. 5. AGAIN NOTED IS SOFT TISSUE DENSITY EXTENDING ALONG THE COLOSTOMY SITE.
[2017-04-14] MEDS: Morphine INJ* 2 MG/ML 1 ML SYRINGE IV PRN (21:05)
--- NOTE | 2017-04-14 21:34 | CONS ---
CC: Emeka Rodríguez MD; [facility] * CONSULTATION REPORT: DATE OF CONSULTATION: HISTORY: The patient is a 66-year-old woman with a history of endometrial carcinoma for about the last 2 years. She has had multiple abdominal surgeries the most recent of which was approximately three and a half months ago who had a permanent colostomy placed at the time of surgery last May, who now presents with abdominal distension and pain. She has been having frequent paracentesis due to recurrent ascites. She has known metastatic disease through -out the abdomen. The most recent surgery was advance of debulking surgery done at the [facility]. The current episode has resulted in spontaneous drainage from her midline wound. She has also had a paracentesis for culture, which has multiple organisms. Today, she states she feels a little bit better than yesterday, a little bit less pain. She felt may be there was a tiny output from the stoma. She is not having any nausea or vomiting today. She is still having occasional fevers. She has been using a stoma appliance over the leakage site and that has been successful capturing the drainage. PHYSICAL EXAMINATION: On examination, she is a slender appearing woman almost looking a little cachectic. She has a protuberant distended abdomen. There is mild erythema induration in the central part of the abdomen. The patient states that this is probably a little bit less than it was yesterday. There is a midline stoma appliance, which contains a drainage site, which is the side of where this spontaneous drainage has occurred. There is an opening of approximately 4 mm across. With a cotton tip swab, I am able to identify free space tracking mostly superiorly and inferiorly at least 3, maybe 4 cm in each direction; however, it also tracks almost 3 cm towards the stoma. The fluid that is forthcoming is watery consistency somewhat bloody in color. She states this is exactly what her ascites has been looking like with her paracentesis. The stoma appears to be in good condition. There is no inflammation. I cannot demonstrate any communication between the stoma and the midline drainage site although there is a little bit of fluid in the appliance surrounding the stoma, which looks very similar to the peritoneal drainage. There is no gross peritonitis. ASSESSMENT AND PLAN: At this stage, there does not seem to be any urgent need for exploration of the abdomen. I think this should be considered somewhat of a hostile abdomen so the possibility of laparotomy should not be undertaken lightly. I think she has a reasonable likelihood of resolving this nonoperatively with antibiotics so long as we can keep adequate drainage to the exit site. If necessary, this could be opened up wider to allow perhaps even better drainage although it may be more difficult at that point to contain it with a stoma appliance. A CAT scan is pending for today. She has taken oral contrast. Conceivably, if there was some kind of enteric communication with the fluid that show on the scan although given the appearance of the fluid I think that is unlikely. So at present I think, continued open drainage of the abdominal wall site, continued intravenous antibiotics and we will evaluate the CT scan when available. [id number]/[facility] #: [id number] ROSHAN
[2017-04-15] MEDS: NS 0.9% 1000 ML* 1,000 ML IV SCH (02:32)
[2017-04-15] MEDS: PROCHLORPERAZINE INJ 5 MG/ML 2 ML VIAL IV PRN ×2 (02:42→20:42)
[2017-04-15] MEDS: metroNIDAZOLE IV 500 MG/100ML* 500 MG/100 ML BAG IVPB SCH ×2 (08:51→19:53)
[2017-04-15] MEDS: Aspirin EC Low Dose* 81 MG TAB.EC PO SCH (08:51)
[2017-04-15] MEDS: Docusate CAP* 100 MG PO SCH ×2 (08:51→19:52)
[2017-04-15] MEDS: Morphine INJ* 2 MG/ML 1 ML SYRINGE IV PRN ×3 (08:51→20:42)
[2017-04-15] MEDS: Metoprolol Succinate XL TAB* 25 MG PO SCH (08:51)
--- NOTE | 2017-04-15 10:47 | PN ---
Progress Note - Progress Note Date of Service: 04/15/17 SOAP: Subjective: []She did well overnight, had some solid food and did not vomit but no air or stool in colostomy in 3 days. No fever or chills, no palpitations. Has not been out of bed since had fall. Pain is controlled but fatigue with narcotics. Acetaminophen (Tylenol Adult Liq*) 650 mg PO Q6H PRN PRN Reason: PAIN Last Admin: 04/14/17 17:39 Dose: 650 mg Acetaminophen (Tylenol Supp*) 650 mg VA Q6H PRN PRN Reason: FEVER/PAIN Aspirin (Aspirin Ec Low Dose*) 81 mg PO DAILY [facility] Last Admin: 04/15/17 08:51 Dose: 81 mg Bisacodyl (Dulcolax Supp*) 10 mg VA DAILY PRN PRN Reason: CONSTIPATION Digoxin (Lanoxin Tab*) 0.125 mg PO MOWEFR [facility] Last Admin: 04/13/17 17:11 Dose: 0.125 mg Digoxin (Lanoxin Tab*) 0.25 mg PO SUTUTHSA [facility] Last Admin: 04/14/17 14:36 Dose: 0.25 mg Docusate Sodium (Colace Cap*) 100 mg PO BID [facility] Last Admin: 04/15/17 08:51 Dose: 100 mg Enoxaparin Sodium (Lovenox(*)) 40 mg SUBCUT Q24H [facility] Last Admin: 04/14/17 13:57 Dose: 40 mg Metronidazole/Sodium Chloride (Flagyl 500 Mg Ivpb*) 500 mg in 100 mls @ 100 mls /hr IVPB BID [facility] Last Admin: 04/15/17 08:51 Dose: 100 mls/hr Sodium Chloride (Ns 0.9% 1000 Ml*) 1,000 mls @ 75 mls/hr IV PER RATE [facility] Last Admin: 04/15/17 02:32 Dose: 75 mls/hr Ceftriaxone Sodium 1,000 mg/ (Sodium Chloride) 50 mls @ 200 mls/hr IVPB Q24H [facility] Last Admin: 04/14/17 12:38 Dose: 200 mls/hr Metoprolol Succinate (Toprol Xl Tab*) 25 mg PO DAILY [facility] Last Admin: 04/15/17 08:51 Dose: 25 mg Morphine Sulfate (Morphine Inj (Syringe)*) 2 mg IV Q4H PRN PRN Reason: PAIN - MILD Last Admin: 04/15/17 08:51 Dose: 2 mg Ondansetron HCl (Zofran Tab*) 4 mg PO Q4HR PRN PRN Reason: NAUSEA/VOMITING Last Admin: 04/11/17 17:34 Dose: 4 mg Ondansetron HCl (Zofran Inj*) 4 mg IV Q4H PRN PRN Reason: NAUSEA/VOMITING Last Admin: 04/13/17 21:12 Dose: 4 mg Pantoprazole Sodium (Protonix Iv*) 40 mg IV Q24H OLEG Last Admin: 04/14/17 11:00 Dose: 40 mg Polyethylene Glycol/Electrolytes (Miralax*) 17 gm PO DAILY PRN PRN Reason: CONSTIPATION Prochlorperazine Edisylate (Compazine Inj*) 10 mg IV Q8H PRN PRN Reason: NAUSEA/VOMITING Last Admin: 04/15/17 02:42 Dose: 10 mg Scopolamine (Transderm-Scop 1.5 Mg Patch*) 1 patch TRANSDERM Q72H [facility] Last Admin: 04/14/17 16:09 Dose: 1 patch Objective: [] Vital Signs Temp Pulse Resp BP Pulse Ox 97.9 F 89 18 115/49 98 04/15/17 07:31 04/15/17 07:31 04/15/17 09:51 04/15/17 07:31 04/15/17 07:31 HEENT:cachectic. no oral lesions CTA RRR S1S2 and rate 70s ABD: distended with fluid, no bowl sounds, non tender. Has peritoneal fluid draining from two pin holes at midline. no air in colostomy Ext +1 edema Pathology: MSI + CT scan: Reviewed with Dr. Calderon, fistula appears to be from fluid, no bowl. 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 Has a peritoneal-cutaneous fistula with bowl yulia raising question of bowl perforation in setting of obstruction. Plan: []1. Peritonitis. Stable on current antibiotics. 2. Bowl obstruction. No air in colostomy and no bowl sounds on exam. - Will re-check CT A/P and see if oral contrast has progressed to ostomy or is leaking into peritoneal fluid. - Clear liquid diet 3. Fistula. Discussed with ID and will see how much drainage he has. 4. A-fib. Stable on current medications, follow telemetry for today. 5. Disp. PT to evaluate gait. 6. Discussed MSI status and possibility of family cancer gene. face time 40 min with patient and chart
--- NOTE | 2017-04-15 11:12 | PN ---
Progress Note - Progress Note Date of Service: 04/15/17 SOAP: Subjective: CC: abd pain HPI: 66 year old woman with metastatic endometrial cancer admitted with abd pain , has ascites and intermittant paracentesis. Now with cellulitis arising from midline abd incision and multiple spontaneous points of drainage of serous fluid in that area. Fever improved. No rash, minimal PO intake or ostomy output. Objective: [] Vital Signs Temp 36.6 C 04/15/17 07:31 Pulse 89 04/15/17 07:31 Resp 18 04/15/17 09:51 BP 115/49 04/15/17 07:31 Pulse Ox 98 04/15/17 07:31 Intake & Output 04/14/17 04/15/17 04/15/17 18:59 06:59 18:59 Intake Total 503 1444 240 Balance 503 1444 240 Weight 131 lb Intake: IV Fluids 403 933 Flagyl 100 NS (0.9%) 303 933 IVPB 100 171 Flagyl 100 171 Oral 0 340 240 Other: Estimated Void Small Medium # Bowel Movements 0 # Voids 1 2 Gen:awake, no distress HEENT:PERRL, MMM Neck: supple Heart:RRR no murmur Lungs:CTA BL Abd:decr BS, distended, diffusely tender; midline healed incision w ostomy bag fluid present; LLQ ostomy bag deflated; R abd mild edema and warmth, improving Skin: no rash Assessment: 1. fever due to abd wall celllulitis and peritonitis 2. abd wall cellulitis, improving; associated with ascites leak 3. multiloculated abd ascites, complicated by polymicrobial infection likely bowel yulia 4. endometrial cancer with liver and peritoneal metastases 5. Plan: 1. continue ceftriaxone and flagyl. Recheck CT today to track PO dye in bowel. ? dye through ostomy if no information obtained from today's CT. Discussed with Dr Glover. 35 minutes floor time >50% face to face in counseling regarding CT today and continued antibiotic treatment.
[2017-04-15] MEDS: Pantoprazole IV* 40 MG IV SCH (11:13)
[2017-04-15] MEDS: Enoxaparin(*) 40 MG/0.4 ML SYR SUBCUT SCH (11:13)
[2017-04-15] MEDS: cefTRIAXone VIAL(*) 1,000 MG in NS 0.9% 50 ML* 50 ML IVPB SCH (11:13)
--- NOTE | 2017-04-15 12:10 | SURGPN ---
Subjective - Introduction -: Reports feeling a little better this morning. Had a normal breakfast, tolerated it, no nausea or vomiting. - Medications -: Active Medications Generic Name Dose Route Start Last Admin Trade Name Freq PRN Reason Stop Dose Admin Acetaminophen 650 mg 04/13/17 10:48 04/14/17 17:39 Tylenol Adult Liq* PO 650 mg Q6H PRN Administration PAIN Acetaminophen 650 mg 04/13/17 12:53 Tylenol Supp* NC Q6H PRN FEVER/PAIN Aspirin 81 mg 04/12/17 09:00 04/15/17 08:51 Aspirin Ec Low Dose* PO 81 mg DAILY OLEG Administration Bisacodyl 10 mg 04/14/17 10:00 Dulcolax Supp* NC DAILY PRN CONSTIPATION Digoxin 0.125 mg 04/11/17 16:00 04/13/17 17:11 Lanoxin Tab* PO 0.125 mg MOWEFR OLEG Administration Digoxin 0.25 mg 04/12/17 15:03 04/14/17 14:36 Lanoxin Tab* PO 0.25 mg SUTUTHSA OLEG Administration Docusate Sodium 100 mg 04/11/17 21:00 04/15/17 08:51 Colace Cap* PO 100 mg BID OLEG Administration Enoxaparin Sodium 40 mg 04/13/17 12:00 04/15/17 11:13 Lovenox(*) SUBCUT 40 mg Q24H OLEG Administration Metronidazole/Sodium Chloride 500 mg in 100 mls @ 100 mls/hr 04/11/17 21:00 04/15/17 08:51 Flagyl 500 Mg Ivpb* IVPB 100 mls/hr BID OLEG Administration Sodium Chloride 1,000 mls @ 75 mls/hr 04/12/17 02:27 04/15/17 02:32 Ns 0.9% 1000 Ml* IV 75 mls/hr PER RATE OLEG Administration Ceftriaxone Sodium 1,000 mg/ 50 mls @ 200 mls/hr 04/13/17 12:00 04/15/17 11: 13 Sodium Chloride IVPB 200 mls/hr Q24H OLEG Administration Metoprolol Succinate 25 mg 04/12/17 09:00 04/15/17 08:51 Toprol Xl Tab* PO 25 mg DAILY OLEG Administration Morphine Sulfate 2 mg 04/13/17 10:44 04/15/17 08:51 Morphine Inj (Syringe)* IV 2 mg Q4H PRN Administration PAIN - MILD Ondansetron HCl 4 mg 04/11/17 15:03 04/11/17 17:34 Zofran Tab* PO 4 mg Q4HR PRN Administration NAUSEA/VOMITING Ondansetron HCl 4 mg 04/12/17 00:37 04/13/17 21:12 Zofran Inj* IV 4 mg Q4H PRN Administration NAUSEA/VOMITING Pantoprazole Sodium 40 mg 04/13/17 11:00 04/15/17 11:13 Protonix Iv* IV 40 mg Q24H OLEG Administration Polyethylene Glycol/Electrolytes 17 gm 04/14/17 15:55 Miralax* PO DAILY PRN CONSTIPATION Prochlorperazine Edisylate 10 mg 04/12/17 11:13 04/15/17 02:42 Compazine Inj* IV 10 mg Q8H PRN Administration NAUSEA/VOMITING Scopolamine 1 patch 04/11/17 16:00 04/14/17 16:09 Transderm-Scop 1.5 Mg Patch* TRANSDERM 1 patch Q72H OLEG Administration Objective - Objective -: Awake and alert, comfortable in bed, in NAD. - Intake and Output -: Intake & Output 04/13/17 04/14/17 04/15/17 04/16/17 06:59 06:59 06:59 06:59 Intake Total 2817 1985 1947 240 Output Total 50 0 Balance 2767 1985 1947 240 Weight 131 lb Intake: IV Fluids 831 1580 1336 Flagyl 24 100 NS (0.9%) 807 1580 1236 IVPB 976 165 271 Flagyl 110 271 NS (0.9%) 866 165 Oral 1010 240 340 240 Output: Urine 50 0 Other: Estimated Void Medium Medium Medium # Bowel Movements 0 0 0 # Voids 3 2 2 Surgical Physical Exam - Comments -: VSS Abdomen round, firm and distended. Stoma viable with no air or stool noted. Midline drainage site secured with dressing, appears dry with no active discharge noted. Labs noted CT reviewed Assessment and Plan - Assessment -: A 66 y/o female with metastatic endometrial carcinoma and recurrent ascites. - Plan Additional Comments: She appears to be improving clinically. CT scan will be repeated to evaluate for possible fistula. No surgical indications at this point, however if any surgical interventions planned, Patient will likely be transferred to [place].
--- NOTE | 2017-04-15 16:12 | RAD ---
CLINICAL HISTORY: Fistula COMPARISON: CT dated April 14, 2017 TECHNIQUE: Multiple contiguous axial CT scans were obtained of the abdomen and pelvis, without intravenous contrast enhancement. Coronal and sagittal multiplanar reformations are submitted for review. Oral contrast was administered. FINDINGS: This exam is read in conjunction with the CT of April 14, 2017. Oral contrast is noted within the colon. There is no appreciable extravasation of oral contrast through the suspected sinus tract of the anterior abdominal wall, though no oral contrast is noted within the small bowel at the time of examination. There is intravenous contrast noted excreted within the bladder and renal collecting systems.. The remaining findings are similar to the April 14, 2017 examination counting for differences in technique. IMPRESSION: ORAL CONTRAST IS NOTED WITHIN THE COLON, WITHOUT APPRECIABLE EXTRAVASATION OF CONTRAST ALONG THE SUSPECTED FISTULA/SINUS TRACT OF THE ANTERIOR ABDOMINAL WALL, THOUGH NO ORAL CONTRAST IS NOTED WITHIN THE SMALL BOWEL AT THE TIME OF EXAMINATION
[2017-04-15] MEDS: Digoxin TAB* 0.125 MG PO SCH (16:18)
[2017-04-15] MEDS: Acetaminophen ADULT LIQ* 650 MG/20.3 ML UDC PO PRN (19:48)
[2017-04-16 04:55] LABS: Hematocrit 29 % (35-47); Hemoglobin 9.2 g/dl (12.0-16.0); Mean Corpuscular HGB Conc 32 g/dl (31-36); Mean Corpuscular Hemoglobin 26 pg (27-31); Mean Corpuscular Volume 80 fL (80-97); Mean Platelet Volume 7 um3 (7.4-10.4); Red Blood Count 3.57 10^6/ul (4.0-5.4); Red Cell Distribution Width 20 % (10.5-15); White Blood Count 5.6 10^3/ul (3.5-10.8)
[2017-04-16 05:25] LABS: Albumin 2.1 g/dL (3.2-5.2); EGFR African American 158.8 (>60); EGFR Non-African American 123.4 (>60); Globulin 2.9 g/dL (2-4); Potassium 3.9 mmol/L (3.5-5.0); Total Bilirubin 0.5 mg/dL (0.2-1.0)
--- NOTE | 2017-04-16 08:56 | PN ---
Progress Note - Progress Note Date of Service: 04/16/17 SOAP: Subjective: []Did well yesterday. Less drainage through fistula. Taking clear liquids and is hungry, no out put in colostomy, either gas or stool. PT came by but has not walked, wants a walker. Acetaminophen (Tylenol Adult Liq*) 650 mg PO Q6H PRN PRN Reason: PAIN Last Admin: 04/15/17 19:48 Dose: 650 mg Acetaminophen (Tylenol Supp*) 650 mg [place] Q6H PRN PRN Reason: FEVER/PAIN Aspirin (Aspirin Ec Low Dose*) 81 mg PO DAILY [facility] Last Admin: 04/15/17 08:51 Dose: 81 mg Bisacodyl (Dulcolax Supp*) 10 mg CO DAILY PRN PRN Reason: CONSTIPATION Digoxin (Lanoxin Tab*) 0.125 mg PO MOWEFR [facility] Last Admin: 04/15/17 16:18 Dose: 0.125 mg Digoxin (Lanoxin Tab*) 0.25 mg PO SUTUTHSA [facility] Last Admin: 04/14/17 14:36 Dose: 0.25 mg Docusate Sodium (Colace Cap*) 100 mg PO BID [facility] Last Admin: 04/15/17 19:52 Dose: 100 mg Enoxaparin Sodium (Lovenox(*)) 40 mg SUBCUT Q24H [facility] Last Admin: 04/15/17 11:13 Dose: 40 mg Metronidazole/Sodium Chloride (Flagyl 500 Mg Ivpb*) 500 mg in 100 mls @ 100 mls /hr IVPB BID [facility] Last Admin: 04/15/17 19:53 Dose: 100 mls/hr Sodium Chloride (Ns 0.9% 1000 Ml*) 1,000 mls @ 75 mls/hr IV PER RATE [facility] Last Admin: 04/15/17 02:32 Dose: 75 mls/hr Ceftriaxone Sodium 1,000 mg/ (Sodium Chloride) 50 mls @ 200 mls/hr IVPB Q24H [facility] Last Admin: 04/15/17 11:13 Dose: 200 mls/hr Metoprolol Succinate (Toprol Xl Tab*) 25 mg PO DAILY [facility] Last Admin: 04/15/17 08:51 Dose: 25 mg Morphine Sulfate (Morphine Inj (Syringe)*) 2 mg IV Q4H PRN PRN Reason: PAIN - MILD Last Admin: 04/15/17 20:42 Dose: 2 mg Ondansetron HCl (Zofran Tab*) 4 mg PO Q4HR PRN PRN Reason: NAUSEA/VOMITING Last Admin: 04/11/17 17:34 Dose: 4 mg Ondansetron HCl (Zofran Inj*) 4 mg IV Q4H PRN PRN Reason: NAUSEA/VOMITING Last Admin: 04/13/17 21:12 Dose: 4 mg Pantoprazole Sodium (Protonix Iv*) 40 mg IV Q24H [facility] Last Admin: 04/15/17 11:13 Dose: 40 mg Polyethylene Glycol/Electrolytes (Miralax*) 17 gm PO DAILY PRN PRN Reason: CONSTIPATION Prochlorperazine Edisylate (Compazine Inj*) 10 mg IV Q8H PRN PRN Reason: NAUSEA/VOMITING Last Admin: 04/15/17 20:42 Dose: 10 mg Scopolamine (Transderm-Scop 1.5 Mg Patch*) 1 patch TRANSDERM Q72H [facility] Last Admin: 04/14/17 16:09 Dose: 1 patch Objective: [] Vital Signs Temp Pulse Resp BP Pulse Ox 98.6 F 87 18 108/49 97 04/16/17 05:09 04/16/17 05:09 04/16/17 05:09 04/16/17 05:09 04/16/17 05:09 HEENT:cachectic. no oral lesions CTA RRR S1S2 and rate 70s ABD: Bandage over fistula is clean. ABd more distended. Hypertympanic. not tender. Ext +1 edema Pathology: MSI + CT scan: there is further progression of oral contrast into colon but not to colostomy, no evidence of fistula. 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 Has a peritoneal-cutaneous fistula with bowl uylia raising question of bowl perforation in setting of obstruction. Plan: []1. Peritonitis. Stable on current antibiotics. 2. Bowl function. No air in colostomy, abd distended. She does have bowl sounds on exam and CT without obstruction. Will follow. - Stop Zofran and Compazine, IV reglan for nausea. - Clear liquid diet until air in colostomy. 3. Fistula. Drainage decreasing and will follow. 4. A-fib. Stable on current medications, follow telemetry for today. 5. Disp. PT to evaluate gait, walk with walker today. Discharge will be when ambulating and bowls are moving.
[2017-04-16] MEDS: Acetaminophen ADULT LIQ* 650 MG/20.3 ML UDC PO PRN ×2 (09:41→18:50)
[2017-04-16] MEDS: Metoprolol Succinate XL TAB* 25 MG PO SCH (09:41)
[2017-04-16] MEDS: Pantoprazole IV* 40 MG IV SCH (09:41)
[2017-04-16] MEDS: Aspirin EC Low Dose* 81 MG TAB.EC PO SCH (09:42)
[2017-04-16] MEDS: Docusate CAP* 100 MG PO SCH ×2 (09:42→19:45)
[2017-04-16] MEDS: metroNIDAZOLE IV 500 MG/100ML* 500 MG/100 ML BAG IVPB SCH ×2 (10:26→20:06)
[2017-04-16] MEDS: NS 0.9% 1000 ML* 1,000 ML IV SCH (10:30)
[2017-04-16] MEDS: cefTRIAXone VIAL(*) 1,000 MG in NS 0.9% 50 ML* 50 ML IVPB SCH (12:31)
[2017-04-16] MEDS: Enoxaparin(*) 40 MG/0.4 ML SYR SUBCUT SCH (14:31)
[2017-04-16] MEDS: diPHENhydraMINE CREAM 2%(NF) 28 gm TUBE TOPICAL SCH ×2 (14:57→19:51)
[2017-04-16] MEDS: Digoxin TAB* 0.25 MG PO SCH (17:17)
[2017-04-16] MEDS: Lidocaine 5% OINT TOPICAL SCH ×2 (17:20→19:50)
[2017-04-16] MEDS: Metoclopramide IV* 5 MG/ML 2 ML VIAL IV PRN (18:50)
[2017-04-16] MEDS: Morphine INJ* 2 MG/ML 1 ML SYRINGE IV PRN (19:49)
[2017-04-17 06:00] LABS: Calcium 7.9 mg/dL (8.6-10.3); EGFR African American 158.8 (>60); EGFR Non-African American 123.4 (>60); Globulin 2.8 g/dL (2-4); Magnesium 1.7 mg/dL (1.9-2.7); Potassium 3.7 mmol/L (3.5-5.0); Total Bilirubin 0.5 mg/dL (0.2-1.0); Total Protein 4.8 g/dL (6.4-8.9)
[2017-04-17] MEDS: metroNIDAZOLE IV 500 MG/100ML* 500 MG/100 ML BAG IVPB SCH ×2 (09:43→20:32)
[2017-04-17] MEDS: Pantoprazole IV* 40 MG IV SCH (09:43)
[2017-04-17] MEDS: Aspirin EC Low Dose* 81 MG TAB.EC PO SCH (09:46)
[2017-04-17] MEDS: Docusate CAP* 100 MG PO SCH ×2 (09:46→20:31)
[2017-04-17] MEDS: Acetaminophen TAB* 325 MG PO PRN (09:46)
[2017-04-17] MEDS: Prochlorperazine TAB* 10 MG PO PRN (09:46)
[2017-04-17] MEDS: Metoprolol Succinate XL TAB* 25 MG PO SCH (09:46)
[2017-04-17] MEDS: Lidocaine 5% OINT TOPICAL SCH ×3 (09:47→20:32)
[2017-04-17] MEDS: diPHENhydraMINE CREAM 2%(NF) 28 gm TUBE TOPICAL SCH ×3 (09:47→20:31)
--- NOTE | 2017-04-17 11:59 | PN ---
Subjective Date of Service: 04/17/17 Interval History: Pain controlled with oral APAP. Minimal colostomy output so far. No new c/o. Objective Active Medications: Acetaminophen (Tylenol Adult Liq*) 650 mg PO Q6H PRN PRN Reason: PAIN Last Admin: 04/16/17 18:50 Dose: 650 mg Acetaminophen (Tylenol Supp*) 650 mg [place] Q6H PRN PRN Reason: FEVER/PAIN Acetaminophen (Tylenol Tab*) 650 mg PO Q6H PRN PRN Reason: PAIN/FEVER Last Admin: 04/17/17 09:46 Dose: 650 mg Aspirin (Aspirin Ec Low Dose*) 81 mg PO DAILY [facility] Last Admin: 04/17/17 09:46 Dose: 81 mg Bisacodyl (Dulcolax Supp*) 10 mg CA DAILY PRN PRN Reason: CONSTIPATION Digoxin (Lanoxin Tab*) 0.125 mg PO MOWEFR [facility] Last Admin: 04/15/17 16:18 Dose: 0.125 mg Digoxin (Lanoxin Tab*) 0.25 mg PO SUTUTHSA [facility] Last Admin: 04/16/17 17:17 Dose: 0.25 mg Docusate Sodium (Colace Cap*) 100 mg PO BID [facility] Last Admin: 04/17/17 09:46 Dose: 100 mg Enoxaparin Sodium (Lovenox(*)) 40 mg SUBCUT Q24H [facility] Last Admin: 04/16/17 14:31 Dose: 40 mg Heparin Sodium (Porcine) (Heparin Flush Port (Ivad)) 5 ml FLUSH DAILY [facility] PRN Reason: Protocol Last Admin: 04/17/17 09:47 Dose: Not Given Metronidazole/Sodium Chloride (Flagyl 500 Mg Ivpb*) 500 mg in 100 mls @ 100 mls /hr IVPB BID [facility] Last Admin: 04/17/17 09:43 Dose: 100 mls/hr Ceftriaxone Sodium 1,000 mg/ (Sodium Chloride) 50 mls @ 200 mls/hr IVPB Q24H [facility] Last Admin: 04/16/17 12:31 Dose: 200 mls/hr Lidocaine (Xylocaine 5% Oint*) 1 applic TOPICAL BID [facility] Last Admin: 04/17/17 09:47 Dose: Not Given Metoclopramide HCl (Reglan Iv*) 10 mg IV Q6H PRN PRN Reason: NAUSEA/VOMITING Last Admin: 04/16/17 18:50 Dose: 10 mg Metoprolol Succinate (Toprol Xl Tab*) 25 mg PO DAILY [facility] Last Admin: 04/17/17 09:46 Dose: 25 mg Morphine Sulfate (Morphine Inj (Syringe)*) 2 mg IV Q4H PRN PRN Reason: PAIN - MILD Last Admin: 04/16/17 19:49 Dose: 2 mg Ondansetron HCl (Zofran Inj*) 4 mg IV Q4H PRN PRN Reason: NAUSEA/VOMITING Last Admin: 04/13/17 21:12 Dose: 4 mg Pantoprazole Sodium (Protonix Iv*) 40 mg IV Q24H [facility] Last Admin: 04/17/17 09:43 Dose: 40 mg Polyethylene Glycol/Electrolytes (Miralax*) 17 gm PO DAILY PRN PRN Reason: CONSTIPATION Last Admin: 04/16/17 19:43 Dose: 17 gm Prochlorperazine (Compazine Tab*) 10 mg PO Q6H PRN PRN Reason: NAUSEA/VOMITTING Last Admin: 04/17/17 09:46 Dose: 10 mg Scopolamine (Transderm-Scop 1.5 Mg Patch*) 1 patch TRANSDERM Q72H [facility] Last Admin: 04/14/17 16:09 Dose: 1 patch Zinc Acetate/Diphenhydramine (Benadryl X-Strength Cream (Nf)) 1 applic TOPICAL TID [facility] PRN Reason: Protocol Last Admin: 04/17/17 09:47 Dose: Not Given Vital Signs 04/16/17 04/16/17 04/16/17 15:37 17:17 19:29 Temperature 98.4 F 99.3 F Pulse Rate 88 94 94 Respiratory 16 16 Rate Blood Pressure 95/38 100/48 (mmHg) O2 Sat by Pulse 97 96 Oximetry 04/16/17 04/16/17 04/16/17 19:49 20:00 20:49 Temperature Pulse Rate Respiratory 17 17 17 Rate Blood Pressure (mmHg) O2 Sat by Pulse Oximetry 04/16/17 04/17/17 04/17/17 23:38 03:35 07:29 Temperature 99.2 F 100.4 F 99.1 F Pulse Rate 93 99 94 Respiratory 20 16 18 Rate Blood Pressure 108/50 132/62 121/58 (mmHg) O2 Sat by Pulse 96 98 96 Oximetry Oxygen Devices in Use Now: None Appearance: Alert, supine in bed. In good spirits. Looks comfortable. Eyes: No Scleral Icterus Ears/Nose/Mouth/Throat: Clear Oropharnyx, Mucous Membranes Moist Neck: NL Appearance and Movements; NL JVP, No Thyroid Enlargement, Masses Respiratory: Symmetrical Chest Expansion and Respiratory Effort, Clear to Auscultation, Clear to Percussion Cardiovascular: NL Sounds; No Murmurs; No JVD, RRR, No Edema, - Abdominal: - - Distended but soft. Nl BS. Colostomy L abd. Extremities: No Clubbing, Cyanosis - 2+ pedal edema BL Skin: No Rash or Ulcers, No Nodules or Sclerosis Neurological: Alert and Oriented x 3, NL Sensation Result Diagrams: 04/16/17 04:45 04/17/17 05:15 Microbiology and Other Data: Microbiology 04/12/17 12:21 Gram Stain - Final Peritoneal Fluid Body Fluid Culture - Final Klebsiella Oxytoca Assess/Plan/Problems-Billing Assessment: - Patient Problems (1) Endometrial cancer Current Visit: Yes Status: Acute Code(s): C54.1 - MALIGNANT NEOPLASM OF ENDOMETRIUM SNOMED Code(s): 388059717 Comment: Extensive intra-abdominal mets with enterocutaneous fistula and ascites. Continue ceftriaxone, APAP. Clear liquid diet for now. Consider transfer to [place] for surgery if not improving here. (2) Atrial fibrillation Current Visit: Yes Status: Acute Code(s): I48.91 - UNSPECIFIED ATRIAL FIBRILLATION SNOMED Code(s): 39893763 Comment: Now in NSR. Continue digoxin, metoprolol.
[2017-04-17] MEDS: cefTRIAXone VIAL(*) 1,000 MG in NS 0.9% 50 ML* 50 ML IVPB SCH (12:12)
[2017-04-17] MEDS: Enoxaparin(*) 40 MG/0.4 ML SYR SUBCUT SCH (12:15)
[2017-04-17] MEDS: Digoxin TAB* 0.25 MG PO SCH (15:08)
[2017-04-17] MEDS: Scopolamine 1.5 mg* PATCH TRANSDERM SCH (16:08)
[2017-04-17] MEDS: Ondansetron INJ* 2 MG/ML VIAL IV PRN (20:33)
[2017-04-18 06:07] LABS: Hematocrit 31 % (35-47); Mean Corpuscular HGB Conc 32 g/dl (31-36); Mean Corpuscular Hemoglobin 26 pg (27-31); Mean Corpuscular Volume 80 fL (80-97); Mean Platelet Volume 7 um3 (7.4-10.4); Red Blood Count 3.89 10^6/ul (4.0-5.4); Red Cell Distribution Width 20 % (10.5-15); White Blood Count 11.6 10^3/ul (3.5-10.8)
[2017-04-18] MEDS: Docusate CAP* 100 MG PO SCH ×2 (07:51→21:33)
[2017-04-18] MEDS: Metoprolol Succinate XL TAB* 25 MG PO SCH (07:51)
[2017-04-18] MEDS: Aspirin EC Low Dose* 81 MG TAB.EC PO SCH (07:52)
[2017-04-18] MEDS: diPHENhydraMINE CREAM 2%(NF) 28 gm TUBE TOPICAL SCH (10:08)
[2017-04-18] MEDS: Lidocaine 5% OINT TOPICAL SCH ×2 (10:14→21:34)
[2017-04-18] MEDS: metroNIDAZOLE IV 500 MG/100ML* 500 MG/100 ML BAG IVPB SCH ×2 (10:14→21:32)
--- NOTE | 2017-04-18 10:14 | PN ---
Progress Note - Progress Note Date of Service: 04/18/17 SOAP: Subjective: []She is very hungry. Had solid BM this am and has been passing gas. Continued abdominal distension and has leaking from known fistula. Also developed leaking ascites from around colostomy and feels colostomy is looking, "ratty". Awaits a new appliance. No nausea. Abdominal pain is a little better. Acetaminophen (Tylenol Adult Liq*) 650 mg PO Q6H PRN PRN Reason: PAIN Last Admin: 04/16/17 18:50 Dose: 650 mg Acetaminophen (Tylenol Supp*) 650 mg [place] Q6H PRN PRN Reason: FEVER/PAIN Acetaminophen (Tylenol Tab*) 650 mg PO Q6H PRN PRN Reason: PAIN/FEVER Last Admin: 04/17/17 09:46 Dose: 650 mg Aspirin (Aspirin Ec Low Dose*) 81 mg PO DAILY [facility] Last Admin: 04/18/17 07:52 Dose: 81 mg Bisacodyl (Dulcolax Supp*) 10 mg [place] DAILY PRN PRN Reason: CONSTIPATION Digoxin (Lanoxin Tab*) 0.125 mg PO MOWEFR [facility] Last Admin: 04/15/17 16:18 Dose: 0.125 mg Digoxin (Lanoxin Tab*) 0.25 mg PO SUTUTHSA [facility] Last Admin: 04/17/17 15:08 Dose: 0.25 mg Docusate Sodium (Colace Cap*) 100 mg PO BID [facility] Last Admin: 04/18/17 07:51 Dose: 100 mg Enoxaparin Sodium (Lovenox(*)) 40 mg SUBCUT Q24H [facility] Last Admin: 04/17/17 12:15 Dose: 40 mg Heparin Sodium (Porcine) (Heparin Flush Port (Ivad)) 5 ml FLUSH DAILY [facility] PRN Reason: Protocol Last Admin: 04/17/17 12:53 Dose: 5 ml Metronidazole/Sodium Chloride (Flagyl 500 Mg Ivpb*) 500 mg in 100 mls @ 100 mls /hr IVPB BID [facility] Last Admin: 04/17/17 20:32 Dose: 100 mls/hr Ceftriaxone Sodium 1,000 mg/ (Sodium Chloride) 50 mls @ 200 mls/hr IVPB Q24H [facility] Last Admin: 04/17/17 12:12 Dose: 200 mls/hr Lidocaine (Xylocaine 5% Oint*) 1 applic TOPICAL BID [facility] Last Admin: 04/17/17 20:32 Dose: Not Given Metoclopramide HCl (Reglan Iv*) 10 mg IV Q6H PRN PRN Reason: NAUSEA/VOMITING Last Admin: 04/16/17 18:50 Dose: 10 mg Metoprolol Succinate (Toprol Xl Tab*) 25 mg PO DAILY [facility] Last Admin: 04/18/17 07:51 Dose: 25 mg Morphine Sulfate (Morphine Inj (Syringe)*) 2 mg IV Q4H PRN PRN Reason: PAIN - MILD Last Admin: 04/16/17 19:49 Dose: 2 mg Ondansetron HCl (Zofran Inj*) 4 mg IV Q4H PRN PRN Reason: NAUSEA/VOMITING Last Admin: 04/17/17 20:33 Dose: 4 mg Pantoprazole Sodium (Protonix Iv*) 40 mg IV Q24H [facility] Last Admin: 04/17/17 09:43 Dose: 40 mg Polyethylene Glycol/Electrolytes (Miralax*) 17 gm PO DAILY PRN PRN Reason: CONSTIPATION Last Admin: 04/16/17 19:43 Dose: 17 gm Prochlorperazine (Compazine Tab*) 10 mg PO Q6H PRN PRN Reason: NAUSEA/VOMITTING Last Admin: 04/17/17 09:46 Dose: 10 mg Scopolamine (Transderm-Scop 1.5 Mg Patch*) 1 patch TRANSDERM Q72H [facility] Last Admin: 04/17/17 16:08 Dose: 1 patch Zinc Acetate/Diphenhydramine (Benadryl X-Strength Cream (Nf)) 1 applic TOPICAL TID [facility] PRN Reason: Protocol Last Admin: 04/17/17 20:31 Dose: Not Given Objective: [] Vital Signs Temp Pulse Resp BP Pulse Ox 98.0 F 92 18 120/51 97 04/18/17 07:27 04/18/17 07:27 04/18/17 08:00 04/18/17 07:27 04/18/17 07:27 HEENT:cachectic. no oral lesions CTA RRR S1S2 and rate 70s ABD: Some drainage from mid line, there is some leaking around ostomy. 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 Has a peritoneal-cutaneous fistula with bowl yulia raising question of bowl perforation in setting of obstruction. She had 5 day period without gas or stool but now seems to have pass through to the colostomy. Continued tense ascities and leaking midline and at ostomy. Discussed prognosis and I am not sure if additional therapy is realistic. If her bowls obstruct she will need hospice. If she is able to eat, can try and work towards immunotherapy. Even in a best case scenario she needs to understand any additional cancer therapy may do more harm then good. She wants to try immunotherpy if she can. Plan: []1. Will advance diet and see how she does over the coming days. If she is eating well and can ambulate, can go home and consider additional treatment for her cancer. If progresses to obstruction then hospice. 2. Will need to continue to monitor fistula, appears to peritoneal-cutaneous. Surgery is not an option at this time. No plans for additional drainage of fluid. 3. Peritonitis. Stable on current antibiotics. Will discus out patient therapy with Dr. Valdez. 4. Bowl function. Compazine and start Dulcolax 5. A-fib. Stable on current medications. 6. Disp. PT to continue to work with her and plan is discharge home.
--- NOTE | 2017-04-18 11:31 | PN ---
Progress Note - Progress Note Date of Service: 04/18/17 SOAP: Subjective: CC: abd pain HPI: 66 year old woman with metastatic endometrial cancer admitted with abd pain , has ascites and intermittant paracentesis. Developed abd wall cellulitis and fistula. Fever and cellulitis improved. No rash. Objective: [] Vital Signs Temp 36.7 C 04/18/17 07:27 Pulse 92 04/18/17 07:27 Resp 18 04/18/17 08:00 BP 120/51 04/18/17 07:27 Pulse Ox 97 04/18/17 07:27 Intake & Output 04/17/17 04/18/17 04/18/17 18:59 06:59 18:59 Intake Total 494 1245 100 Balance 494 1245 100 Intake: IV Fluids 24 30 Flagyl 24 30 IVPB 150 100 ABX - CEFTRIAXONE 50 Flagyl 100 100 Oral 320 1115 100 Other: Estimated Void Medium # Bowel Movements 0 # Voids 1 Gen:awake, no distress HEENT:PERRL, MMM Neck: supple Heart:RRR no murmur Lungs:CTA BL Abd:decr BS, distended, diffusely tender; midline healed incision w ostomy bag fluid present; LLQ ostomy bag deflated; R abd mild edema Skin: no rash Laboratory Results - last 24 hr 04/18/17 06:00 WBC 11.6 H RBC 3.89 L Hgb 10.0 L Hct 31 L MCV 80 MCH 26 L MCHC 32 RDW 20 H Plt Count 678 H D MPV 7 L Neut % (Auto) 89.2 H Lymph % (Auto) 2.4 L Mchenry % (Auto) 7.6 Eos % (Auto) 0.1 Baso % (Auto) 0.7 Absolute Neuts (auto) 10.3 H Absolute Lymphs (auto) 0.3 L Absolute Monos (auto) 0.9 H Absolute Eos (auto) 0 Absolute Basos (auto) 0.1 Absolute Nucleated RBC 0 Nucleated RBC % 0 Assessment: 1. abd fistula, ascites draining 2. abd wall cellulitis, improving; associated with ascites leak 3. multiloculated abd ascites, complicated by polymicrobial infection likely bowel yulia 4. endometrial cancer with liver and peritoneal metastases 5. leukocytosis, thrombocytosis; due to infection Plan: 1. continue ceftriaxone and flagyl. If WBC continues to climb, recommend more drainage including an IR placed drain. Not a surgical candidate. If WBC trending down; could use bactrim DS daily and flagyl 500 mg po bid. Discussed with Dr Glover
[2017-04-18] MEDS: Pantoprazole IV* 40 MG IV SCH (11:36)
[2017-04-18] MEDS: cefTRIAXone VIAL(*) 1,000 MG in NS 0.9% 50 ML* 50 ML IVPB SCH (11:36)
[2017-04-18] MEDS: Enoxaparin(*) 40 MG/0.4 ML SYR SUBCUT SCH (11:44)
[2017-04-18] MEDS: Digoxin TAB* 0.125 MG PO SCH (16:32)
[2017-04-18] MEDS: Prochlorperazine TAB* 10 MG PO PRN (17:48)
[2017-04-18] MEDS ORDERED: Alteplase (CATHFLO)* 2 MG VIAL IV ONE (20:00)
[2017-04-18] MEDS: Ondansetron INJ* 2 MG/ML VIAL IV PRN (21:58)
[2017-04-19] MEDS: Morphine INJ* 2 MG/ML 1 ML SYRINGE IV PRN ×2 (00:24→04:43)
[2017-04-19] MEDS: Metoclopramide IV* 5 MG/ML 2 ML VIAL IV PRN (00:25)
[2017-04-19 07:41] LABS: Hematocrit 30 % (35-47); Hemoglobin 9.4 g/dl (12.0-16.0); Mean Corpuscular HGB Conc 32 g/dl (31-36); Mean Corpuscular Hemoglobin 26 pg (27-31); Mean Corpuscular Volume 80 fL (80-97); Mean Platelet Volume 7 um3 (7.4-10.4); Red Blood Count 3.68 10^6/ul (4.0-5.4); Red Cell Distribution Width 20 % (10.5-15); White Blood Count 13.1 10^3/ul (3.5-10.8)
[2017-04-19 07:51] LABS: Albumin 2.1 g/dL (3.2-5.2); BUN/Creatinine Ratio 27.8 (8-20); Calcium 8.6 mg/dL (8.6-10.3); EGFR African American 145.3 (>60); Globulin 3.1 g/dL (2-4); Magnesium 1.8 mg/dL (1.9-2.7); Potassium 4.1 mmol/L (3.5-5.0); Total Bilirubin 0.4 mg/dL (0.2-1.0); Total Protein 5.2 g/dL (6.4-8.9)
[2017-04-19] MEDS ORDERED: Bisacodyl EC TAB* 5 MG PO SCH (09:00)
[2017-04-19] MEDS: metroNIDAZOLE IV 500 MG/100ML* 500 MG/100 ML BAG IVPB SCH (09:16)
[2017-04-19] MEDS: Docusate CAP* 100 MG PO SCH (09:23)
[2017-04-19] MEDS: Aspirin EC Low Dose* 81 MG TAB.EC PO SCH (09:23)
[2017-04-19] MEDS: Metoprolol Succinate XL TAB* 25 MG PO SCH (09:29)
[2017-04-19] MEDS: Lidocaine 5% OINT TOPICAL SCH (09:29)
[2017-04-19 11:28] VITALS: BP 126/58
[2017-04-19] MEDS: cefTRIAXone VIAL(*) 1,000 MG in NS 0.9% 50 ML* 50 ML IVPB SCH (12:11)
[2017-04-19] MEDS: Enoxaparin(*) 40 MG/0.4 ML SYR SUBCUT SCH (12:12)
[2017-04-19] MEDS: Pantoprazole IV* 40 MG IV SCH (12:20)
[2017-04-19] MEDS: Acetaminophen TAB* 325 MG PO PRN (13:10)
== END 2017-04-19 14:05 | disposition hospice, home (50) | DRG 372 ==
LOC: ICU 14:53 → MEDTELE 16:29 → MED 04-18 16:49
PROVIDERS: ADMIT Internal Medicine Hematology & Oncology; ATTEND Internal Medicine Hematology & Oncology
PROC: 0W9G3ZZ Drainage of Peritoneal Cavity, Percutaneous Approach (ICD-10-PCS; principal; 2017-04-13)
PROC: 30233N1 Transfusion of Nonautologous Red Blood Cells into Peripheral Vein, Percutaneous Approach (ICD-10-PCS; 2017-04-16)
DX: K65.9 Peritonitis, unspecified (principal); R18.8 Other ascites; C78.7 Secondary malignant neoplasm of liver and intrahepatic bile duct; C78.6 Secondary malignant neoplasm of retroperitoneum and peritoneum; E87.1 Hypo-osmolality and hyponatremia; I48.91 Unspecified atrial fibrillation; L03.311 Cellulitis of abdominal wall; D64.9 Anemia, unspecified; I10 Essential (primary) hypertension; Z90.710 Acquired absence of both cervix and uterus; Z88.8 Allergy status to other drugs, medicaments and biological substances; Z88.0 Allergy status to penicillin; C54.1 Malignant neoplasm of endometrium; R60.0 Localized edema; R10.13 Epigastric pain; B96.1 Klebsiella pneumoniae [K. pneumoniae] as the cause of diseases classified elsewhere; Z93.3 Colostomy status; D47.3 Essential (hemorrhagic) thrombocythemia; Z80.3 Family history of malignant neoplasm of breast; Z80.0 Family history of malignant neoplasm of digestive organs
CPT/HCPCS: 36415; 36591; 49083; 74020; 74176; 74177; 80048; 80053; 83605; 83735; 85025; 85027; 86850; 86870; 86880; 86900; 86901; 86905; 86922; 87040; 87070; 87077; 87186; 87205; 89051; 93005; 96361; 96365; 96367; 96375; 96413; 99211; 99215; 99222; 99232; 99233; A9270-GY; G0463; G8427; J0696; J0744; J0780; J1200; J1642; J1650; J2270; J2405; J2997; J3010; J9330; P9016; P9040; Q0164; Q9967